=== PATIENT | male | born 1960 | race Caucasian/White ===

== ENCOUNTER 2018-05-28 07:41 | Inpatient (IN) | payer BC ==
[2018-05-28] MEDS ORDERED: ASPIRIN 81 MG CHEWABLE TABLETS PO ONE (07:54)
[2018-05-28] MEDS ORDERED: NITROGLYCERIN SUBLINGUAL 1/150 0.4 MG TAB SL ONE (07:54)
[2018-05-28] MEDS ORDERED: ASPIRIN 81 MG CHEWABLE TABLETS ONE (07:59)
[2018-05-28] MEDS ORDERED: NITROGLYCERIN SUBLINGUAL 1/150 0.4 MG TAB ONE (08:00)
[2018-05-28] MEDS ORDERED: morphine SULFATE 4 MG/ML VIAL ONE ×2 (08:07→09:18)
[2018-05-28] MEDS ORDERED: morphine CARPU-JECT 2 MG/1 ML DISP.SYRIN IVPUSH ONE ×2 (08:11→08:58)
[2018-05-28] MEDS ORDERED: SODIUM CHLORIDE 1,000 ML IV STA ×2 (08:11→09:33)
[2018-05-28 08:21] LABS: BASO % 1.2 % (0-2.0); EOS % 2.7 % (0-4.5); HEMATOCRIT 51.3 % (35.4-49); LYMPH % 14.8 % (8-40); MEAN CELL VOLUME 93.7 fl (80-96); MONO % 8.1 % (3.8-10.2); NEUT % 73.2 % (42.8-82.8); PLATELET COUNT 284 K/MM3 (134-434); RBC 5.48 M/mm3 (4.00-5.60); RDW 13.7 % (11.9-15.9); WHITE BLOOD COUNT 10.7 K/mm3 (4.0-10.0)
--- NOTE | 2018-05-28 08:27 | PDOC ---
History of Present Illness <Lexi Newsome - Last Filed: 05/28/18 10:35> - General History Source: Patient - History of Present Illness Presenting Symptoms: Chest Pain Timing/Duration: reports: constant, getting worse Severity/Quality: reports: severe, tightness Location: reports: substernal Chest Pain Radiation: reports: no radiation Activities at Onset: reports: none Prior Chest Pain/Cardiac Workup: reports: No prior chest pain Modifying Factors: improves with: breathing Nitro Today/Relief: Yes: 0.4 mg x 1, provided by ED Aspirin Received prior to arrival (Core Measure): Yes: 81 mg x 2, provided by ED Associated Symptoms: Yes: Chest Pain/pressure <Allie Culp - Last Filed: 05/28/18 12:35> - General Chief Complaint: Chest Pain Stated Complaint: CHEST PAIN Time Seen by Provider: 05/28/18 07:43 - History of Present Illness Initial Comments: 05/28/18 08:18 58-year-old male with history of diabetes and smoking history presents to ED with left-sided chest tightness since awakening this morning which progressively worsened prompting him to call 911. Patient also states secondary to the pain has difficulty taking a deep breath. Patient denies palpitations, nausea, weakness, abdominal pain, back pain, midsternal pain, recent travel, recent illness, calf pain or recent change in medications. Patient states is followed by Dr. Sherif Radford and has seen a vest finisher at his office. Patient' s glucose performed by EMS was 190. No nitroglycerin or aspirin was administered (Allie Culp) Past History <Lexi Newsome - Last Filed: 05/28/18 10:35> - Travel Traveled outside of the country in the last 30 days: No - Suicide/Smoking/Psychosocial Hx Smoking Status: Yes Smoking History: Current every day smoker Have you smoked in the past 12 months: Yes Number of Cigarettes Smoked Daily: 4 Information on smoking cessation initiated: No 'Breaking Loose' booklet given: 07/17/13 Hx Alcohol Use: No Drug/Substance Use Hx: No Substance Use Type: None Hx Substance Use Treatment: No Patient Lives Alone: No <Allie Culp - Last Filed: 05/28/18 12:35> - Past Medical History Allergies/Adverse Reactions: Allergies Allergy/AdvReac Type Severity Reaction Status Date / Time No Known Allergies Allergy Verified 07/17/13 10:42 Home Medications: Ambulatory Orders Aspirin [ASA -] 81 mg PO DAILY 05/28/18 Canagliflozin [Invokana] 100 mg PO DAILY 05/28/18 Sitagliptin Phos/Metformin HCl [Janumet 50-1,000 mg Tablet] 1 each PO DAILY 09/02 Review of Systems - Review of Systems Able to Perform ROS?: No Constitutional: No: Symptoms Reported HEENTM: No: Symptoms Reported Respiratory: Yes: Shortness of Breath Cardiac (ROS): Yes: Chest Pain, Chest Tightness ABD/GI: No: Symptoms Reported : No: Symptoms Reported Musculoskeletal: No: Symptoms Reported Neurological: No: Symptoms reported Hematologic/Lymphatic: No: Symptoms Reported <RobbiAllie - Last Filed: 05/28/18 12:35> *Physical Exam - Physical Exam General Appearance: Yes: Nourished, Appropriately Dressed. No: Apparent Distress HEENT: positive: EOMI, JUAN. negative: Pale Conjunctivae Neck: positive: Supple Respiratory/Chest: positive: Lungs Clear, Normal Breath Sounds. negative: Chest Tender, Respiratory Distress, Accessory Muscle Use Cardiovascular: positive: Regular Rhythm, Regular Rate. negative: Murmur Gastrointestinal/Abdominal: positive: Soft. negative: Distended, Rebound, Tenderness Musculoskeletal: negative: Normal Inspection Extremity: negative: Normal Capillary Refill, Pedal Edema Integumentary: positive: Normal Color, Warm, Moist Neurologic: positive: Motor Strength 5/5 (ambulatory) <RobbiAllie - Last Filed: 05/28/18 12:35> - Vital Signs Last Vital Signs Temp Pulse Resp BP Pulse Ox 97.8 F 95 H 16 92/57 97 05/28/18 11:52 05/28/18 11:52 05/28/18 11:52 05/28/18 11:52 05/28/18 11:52 Heart Score/ECG Review - History History: Slightly suspicious - Electrocardiogram EKG: Normal - Age Age: 45-65 - Risk Factors Risk Factors Heart Score: Yes Hx Diabetes, Yes Smoking History Based on the list above the patient has:: 1-2 risk factors - Troponin Troponin: </= normal limit - Score Heart Score - Total: 2 #2 ECG reviewed & interpreted by me at: 09:00 General ECG Interpretation: Sinus Rhythm, No acute ischemic changes Compared to previous ECG there are: No significant change - ECG Intrepretation Rhythm: Regular Rhythm (nsr at 93, no ST elevation or depression noted. intervals are regular) <Allie Culp - Last Filed: 05/28/18 12:35> ED Treatment Course - LABORATORY CBC & Chemistry Diagram: 05/28/18 08:04 05/28/18 08:04 - Additional Consults Time Called: 10:35 (Paged service) Consult/PCP: Dr. Cruz <Lexi Newsome - Last Filed: 05/28/18 10:35> - LABORATORY CBC & Chemistry Diagram: 05/28/18 08:04 05/28/18 08:04 <Allie Culp - Last Filed: 05/28/18 12:35> - ADDITIONAL ORDERS Additional order review: Laboratory Results 05/28/18 05/28/18 05/28/18 08:04 08:04 08:04 PT with INR 10.60 INR 0.94 D-Dimer 485 Sodium 138 Potassium 4.6 D Chloride 104 Carbon Dioxide 27 Anion Gap 7 L BUN 21 H Creatinine 0.8 Creat Clearance w eGFR > 60 Random Glucose 168 H Calcium 8.9 Magnesium 2.3 Total Bilirubin 0.3 AST 17 ALT 26 D Alkaline Phosphatase 112 Creatine Kinase 117 Troponin I < 0.02 Total Protein 7.3 Albumin 3.8 Lipase 104 05/28/18 08:04 RBC 5.48 MCV 93.7 MCHC 33.0 RDW 13.7 MPV 7.0 L Neutrophils % 73.2 Lymphocytes % 14.8 Monocytes % 8.1 Eosinophils % 2.7 Basophils % 1.2 - RADIOLOGY Radiology Studies Ordered: Category Date Time Status ABDOMEN/PELVIS CTA W/WO CONTR [CT] Stat CT Scan 05/28/18 09:52 Completed CHEST CTA [CT] Stat CT Scan 05/28/18 09:22 Completed CHEST X-RAY PORTABLE* [RAD] Stat Radiology 05/28/18 07:54 Completed - Medications Given in the ED: ED Medications Discontinued Medications Generic Name Dose Route Start Last Admin Trade Name Freq PRN Reason Stop Dose Admin Aspirin 162 mg 05/28/18 07:54 05/28/18 08:05 Asa - PO 05/28/18 07:55 162 mg ONCE ONE Administration Sodium Chloride 1,000 mls @ 1,000 mls/hr 05/28/18 08:11 05/28/18 08:24 Normal Saline - IV 05/28/18 09:10 1,000 mls/hr ASDIR STA Administration Sodium Chloride 1,000 mls @ 1,000 mls/hr 05/28/18 09:33 05/28/18 09:38 Normal Saline - IV 05/28/18 10:32 1,000 mls/hr ASDIR STA Administration Morphine Sulfate 4 mg 05/28/18 08:11 05/28/18 08:24 Morphine Injection - IVPUSH 05/28/18 08:12 4 mg ONCE ONE Administration Morphine Sulfate 2 mg 05/28/18 08:58 05/28/18 09:12 Morphine Injection - IVPUSH 05/28/18 08:59 2 mg ONCE ONE Administration Nitroglycerin 0.4 mg 05/28/18 07:54 05/28/18 08:05 Nitrostat - SL 05/28/18 07:55 0.4 mg ONCE ONE Administration Oxycodone/Acetaminophen 1 combo 05/28/18 10:40 05/28/18 10:52 Percocet 5/325 - PO 05/28/18 10:41 1 combo ONCE ONE Administration Medical Decision Making <Lexi Newsome - Last Filed: 05/28/18 10:35> <Allie Culp - Last Filed: 05/28/18 12:35> - Medical Decision Making 05/28/18 08:23 Patient arrives with complaints of left-sided chest tightness diaphoretic complaining of difficulty taking a deep breath secondary to the pain. Patient states pain began upon awakening and progressively worsened. Patient immediately placed on stave saw operator, EKG was performed which showed no acute findings. Patient had IV access established given nitroglycerin and 2 baby aspirin.Patient continued to complain of left-sided chest pain and was given 4mg of morphine which at that time his blood pressure and went to 77/48. Patient was given IV fluids as a odilia lsaline bolus. within minutes he felt comfortable with no complaints of chest pain. Patient remained on 3L of nasal cannula. Will rule out PE, ACS, pulmonary etiology, and will consider dissection, pericarditis, and admission secondary to his factors. Heart score 2. 05/28/18 10:[address] Cruz will admit to telemetry off. She is recommending Dr. Mckinley for cardiology consult. Patient is pending CT of the chest and abdomen along with echo. Patient is currently asymptomatic. Patient ordered for 1 Percocet since second dose of morphine did not alleviate his left-sided chest tightness entirely. 05/28/18 10:40 Laboratory Tests 05/28/18 05/28/18 05/28/18 08:04 08:04 08:04 WBC 10.7 H Hgb 17.0 H Hct 51.3 H MPV 7.0 L Neutrophils % 73.2 PT with INR 10.60 INR 0.94 D-Dimer 485 Sodium Potassium Chloride Carbon Dioxide Anion Gap BUN Creatinine Creat Clearance w eGFR Random Glucose Calcium Magnesium Total Bilirubin AST ALT Alkaline Phosphatase Creatine Kinase Troponin I Lipase 05/28/18 08:04 WBC Hgb Hct MPV Neutrophils % PT with INR INR D-Dimer Sodium 138 Potassium 4.6 D Chloride 104 Carbon Dioxide 27 Anion Gap 7 L BUN 21 H Creatinine 0.8 Creat Clearance w eGFR > 60 Random Glucose 168 H Calcium 8.9 Magnesium 2.3 Total Bilirubin 0.3 AST 17 ALT 26 D Alkaline Phosphatase 112 Creatine Kinase 117 Troponin I < 0.02 Lipase 104 Case discussed with Franceradha, vest finisher and recommending Lovenox until the echo is reviewed. He will consult shortly 05/28/18 12:35 (Allie Culp) *DC/Admit/Observation/Transfer <Lexi Newsome - Last Filed: 05/28/18 10:35> - Discharge Dispostion Decision to Admit order: Yes <Allie Culp - Last Filed: 05/28/18 12:35> Diagnosis at time of Disposition: Chest tightness
[2018-05-28 08:42] LABS: INR 0.94 (0.83-1.09); PROTHROMBIN TIME (PATIENT) 10.6 SEC (9.7-13.0)
[2018-05-28 09:05] LABS: ALBUMIN 3.8 g/dl (3.4-5.0); ANION GAP 7 MMOL/L (8-16); BLOOD UREA NITROGEN 21 mg/dL (7-18); CALCIUM 8.9 mg/dL (8.5-10.1); CHLORIDE 104 mmol/L (98-107); CO2 27 mmol/L (21-32); CREATININE 0.8 mg/dL (0.7-1.3); GLUCOSE,RANDOM 168 mg/dL (74-106); MAGNESIUM 2.3 mg/dL (1.8-2.4); POTASSIUM 4.6 mmol/L (3.5-5.1); SGOT/AST 17 U/L (15-37); SGPT/ALT 26 U/L (12-78); SODIUM 138 mmol/L (136-145)
[2018-05-28 09:08] LABS: ALK PHOS 112 U/L (45-117); BILIRUBIN,TOTAL 0.3 mg/dL (0.2-1.0); TOT PROT 7.3 g/dl (6.4-8.2)
[2018-05-28 09:41] LABS: LIPASE 104 U/L (73-393)
--- NOTE | 2018-05-28 10:18 | PDOC ---
*Physical Exam - Vital Signs Last Vital Signs Temp Pulse Resp BP Pulse Ox 98.3 F 81 16 72/52 98 05/28/18 09:12 05/28/18 09:31 05/28/18 09:31 05/28/18 09:31 05/28/18 09:31 - Physical Exam Comments: 05/28/18 10:18 The patient was examined by MAGALIS Horn under my direct supervision. I personally evaluated the patient. I concur with the above findings and the plan of care. ED Treatment Course - LABORATORY CBC & Chemistry Diagram: 05/29/18 05:30 05/29/18 05:30 - ADDITIONAL ORDERS Additional order review: Laboratory Results 05/28/18 05/28/18 05/28/18 08:04 08:04 08:04 PT with INR 10.60 INR 0.94 D-Dimer 485 Sodium 138 Potassium 4.6 D Chloride 104 Carbon Dioxide 27 Anion Gap 7 L BUN 21 H Creatinine 0.8 Creat Clearance w eGFR > 60 Random Glucose 168 H Calcium 8.9 Magnesium 2.3 Total Bilirubin 0.3 AST 17 ALT 26 D Alkaline Phosphatase 112 Creatine Kinase 117 Troponin I < 0.02 Total Protein 7.3 Albumin 3.8 Lipase 104 05/28/18 08:04 RBC 5.48 MCV 93.7 MCHC 33.0 RDW 13.7 MPV 7.0 L Neutrophils % 73.2 Lymphocytes % 14.8 Monocytes % 8.1 Eosinophils % 2.7 Basophils % 1.2 - Medications Given in the ED: ED Medications Discontinued Medications Generic Name Dose Route Start Last Admin Trade Name Emmanuelq PRN Reason Stop Dose Admin Aspirin 162 mg 05/28/18 07:54 05/28/18 08:05 Asa - PO 05/28/18 07:55 162 mg ONCE ONE Administration Sodium Chloride 1,000 mls @ 1,000 mls/hr 05/28/18 08:11 05/28/18 08:24 Normal Saline - IV 05/28/18 09:10 1,000 mls/hr ASDIR STA Administration Morphine Sulfate 4 mg 05/28/18 08:11 05/28/18 08:24 Morphine Injection - IVPUSH 05/28/18 08:12 4 mg ONCE ONE Administration Morphine Sulfate 2 mg 05/28/18 08:58 05/28/18 09:12 Morphine Injection - IVPUSH 05/28/18 08:59 2 mg ONCE ONE Administration Nitroglycerin 0.4 mg 05/28/18 07:54 05/28/18 08:05 Nitrostat - SL 05/28/18 07:55 0.4 mg ONCE ONE Administration *DC/Admit/Observation/Transfer Diagnosis at time of Disposition: Chest tightness - Discharge Dispostion Disposition: HOME Condition at time of disposition: Stable - Prescriptions - Referrals - Patient Instructions - Post Discharge Activity
--- NOTE | 2018-05-28 11:48 | EKG ---
Test Reason : Blood Pressure : / mmHG Vent. Rate : 074 BPM Atrial Rate : 074 BPM P-R Int : 146 ms QRS Dur : 082 ms QT Int : 388 ms P-R-T Axes : 005 015 005 degrees QTc Int : 430 ms NORMAL SINUS RHYTHM CANNOT RULE OUT ANTERIOR INFARCT (CITED ON OR BEFORE 28-MAY-2018) ABNORMAL ECG WHEN COMPARED WITH ECG OF 28-MAY-2018 07:46, T WAVE INVERSION NOW EVIDENT IN INFERIOR LEADS Confirmed by JUANITO REID, KIRK ([id number]) on 05/28/2018 11:48:29 AM Referred By: Confirmed By:KIRK SOLOMON MD
--- NOTE | 2018-05-28 11:49 | EKG ---
Test Reason : Blood Pressure : / mmHG Vent. Rate : 093 BPM Atrial Rate : 093 BPM P-R Int : 138 ms QRS Dur : 078 ms QT Int : 348 ms P-R-T Axes : 040 044 054 degrees QTc Int : 432 ms POOR DATA QUALITY, INTERPRETATION MAY BE ADVERSELY AFFECTED NORMAL SINUS RHYTHM CANNOT RULE OUT ANTERIOR INFARCT , AGE UNDETERMINED ABNORMAL ECG WHEN COMPARED WITH ECG OF 17-JUL-2013 16:10, NON-SPECIFIC CHANGE IN ST SEGMENT IN INFERIOR LEADS NONSPECIFIC T WAVE ABNORMALITY NO LONGER EVIDENT IN INFERIOR LEADS NONSPECIFIC T WAVE ABNORMALITY NO LONGER EVIDENT IN LATERAL LEADS Confirmed by JUANITO REID, KIRK ([id number]) on 05/28/2018 11:48:48 AM Referred By: Confirmed By:KIRK SOLOMON MD
[2018-05-28] MEDS ORDERED: ENOXAPARIN NA (PORCINE) 100 MG/1 ML DISP.SYRIN SQ ONE ×2 (12:34→12:41)
--- NOTE | 2018-05-28 13:49 | EKG ---
Test Reason : Blood Pressure : / mmHG Vent. Rate : 089 BPM Atrial Rate : 089 BPM P-R Int : 154 ms QRS Dur : 082 ms QT Int : 358 ms P-R-T Axes : 009 001 014 degrees QTc Int : 435 ms NORMAL SINUS RHYTHM NORMAL ECG WHEN COMPARED WITH ECG OF 28-MAY-2018 08:55, NO SIGNIFICANT CHANGE WAS FOUND Confirmed by KIRK SOLOMON MD ([id number]) on 05/28/2018 1:49:08 PM Referred By: Confirmed By:KIRK SOLOMON MD
[2018-05-28 14:20] LABS: URINE APPEARANCE CLEAR; URINE BILIRUBIN NEGATIVE (<2.0 mg/dL); URINE COLOR YELLOW; URINE GLUCOSE (UA) 3+ (NEGATIVE); URINE KETONE NEGATIVE (NEGATIVE); URINE LEUK ESTERASE NEGATIVE (NEGATIVE); URINE NITRITE NEGATIVE (NEGATIVE); URINE PROTEIN NEGATIVE (NEGATIVE); URINE UROBILINOGEN NEGATIVE mg/dL (0.2-1.0)
--- NOTE | 2018-05-28 14:47 | ECHO ---
Name: FRANKY DONNELLY Exam:Adult Echocardiogram Study Date: 05/28/2018 10:38 AM Age: 58 yrs Reason For Study: Chest pain Height: 69 in Weight: 230 lb BSA: 2.2 m2 BP: 91/58 mmHg MMode/2D Measurements & Calculations IVSd: 0.90 cm Ao root diam: 3.1 cm LVIDd: 3.8 cm LA dimension: 2.7 cm LVIDs: 2.5 cm LVPWd: 1.0 cm EDV(Teich): 61.7 ml ESV(Teich): 21.5 ml Doppler Measurements & Calculations MV E max tavo: 74.0 cm/sec AI P1/2t: 526.5 msec MV A max tavo: 84.4 cm/sec MV E/A: 0.88 MV dec time: 0.14 sec AI max tavo: 341.0 cm/sec TR max tavo: 228.0 cm/sec AI max P.5 mmHg TR max P.8 mmHg AI dec slope: 189.7 cm/sec2 Med Peak E' Tavo: 6.1 cm/sec Med E/e': 12.1 Lat Peak E' Tavo: 9.4 cm/sec Lat E/e': 7.9 Procedure A two-dimensional transthoracic echocardiogram with color flow and Doppler was performed. Left Ventricle The left ventricular size, thickness and function are normal. The left ventricular ejection fraction is normal. E/A reversal consistent with but not diagnostic of poor LV compliance. The left ventricular w all motion is normal. Right Ventricle The right ventricle is normal in size and function. Atria Normal left and right atrial size and function. Mitral Valve The mitral valve is normal in structure and function. There is no mitral valve stenosis. There is tra ce to mild mitral regurgitation. Tricuspid Valve There is trivial tricuspid valve thickening. There is no tricuspid stenosis. There is trace tricuspid regurgitation. Right ventricular systolic pressure is normal. Aortic Valve The aortic valve is normal in structure and function. No hemodynamically significant valvular aortic stenosis. Trace to mild aortic regurgitation. Pulmonic Valve The pulmonic valve is not well visualized. Great Vessels The aortic root is normal size. Pericardium/Pleura There is no pericardial effusion. Interpretation Summary The left ventricular size, thickness and function are normal The left ventricular ejection fraction is normal. The left ventricular wall motion is normal. There is trace to mild mitral regurgitation. There is trace tricuspid regurgitation. Right ventricular systolic pressure is normal. E/A reversal consistent with but not diagnostic of poor LV compliance Trace to mild aortic regurgitation. MD Seymour Silva 05/28/2018 02:47 PM
[2018-05-28] MEDS ORDERED: AZITHROMYCIN IVPB 500 MG in DEXTROSE 5%-WATER - 250 ML IVPB ONE (17:13)
[2018-05-28] MEDS ORDERED: CEFTRIAXONE 1,000 MG in DEXTROSE 5%-WATER - 50 ML IVPB ONE (17:13)
[2018-05-28] MEDS ORDERED: CEFTRIAXONE 1 GM/50 ML BAG ONE (18:11)
[2018-05-28] MEDS ORDERED: AZITHROMYCIN IVPB 250 ML IVPB ONE (18:11)
--- NOTE | 2018-05-28 18:50 | CON.CARD ---
Consult Consult Specialty:: Cardiology Referred by:: Dr. Cruz Reason for Consultation:: Chest pain - History of Present Illness Chief Complaint: Chest pain History of Present Illness: 58M with DM awoke today with diffuse central chest pressure/tightness worse laying down and with deep breathing. Denies fever; no chills but has felt "cold. " Chronic dry cough which he attributes to smoking. The pain is central, substernal, worse supine and improved sitting up. There is a pleuritic character as well worse with deep inspiration. He denies nausea or vomiting. Denies diaphoresis on my history- except for the first few minutes of his ER visit. 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 He was given SLNTG and IV MSO4 with hypotensive response requiring IVF. He was normotensive prior to nitro and morphine. ECG showed NSR with diffuse early repolarization changes and did not show sig ST depressions or clinically diagnostic regional ST elevations. He was also given SQ Lovenox for possible ACS after the CT scan was read negative for dissection and pulmonary embolism. I reviewed his echo which showed normal LV function and normal right sided pressure. No pericardial effusion. I also reviewed his CTA with Dr. Hanley of radiology and confirmed no pulmonary embolism or aortic pathology- there are clear bilateral consolidations suggestive of PNA. The radiographic appearance was not suggestive of CHF. He denies sick contacts, recent prolonged car or air travel. Pior to this morning, he denied exertional CP, SOB or any limitation in exercise capacity. No palpitations, syncope, PND or orthopnea. 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: Alzheimer's, CVA, Dementia, Migraine, Multiple Sclerosis, Peripheral Neuropathy, Parkinson's, Seizure, Syncope, TIA, Vertigo, Other Cardio/Vascular: No: AFIB, Aneurysm, Aortic Insufficiency, Aortic Stenosis, CAD , CHF, Deep Vein Thrombosis, HTN, Hyperlipdemia, [place], Mitral Insufficiency, Mitral Stenosis, Murmur, Pulmonary Hypertension, Other Pulmonary: No: Asthma, Bronchitis, Cancer, COPD, O2 Dependent, Pneumonia, Previously Intubated, Pulmonary Embolus, Pulmonary Fibrosis, Sleep Apnea, Other Gastrointestinal: No: Ascites, Cancer, Constipation, Crohn's Disease, Diverticulitis, Diverticulosis, Esophageal Varices, Gastritis, GERD, GI Bleed, Hemorrhoids, Hiatal Hernia, Inflamatory Bowel Disease, Irritable Bowel Disease, Pancreatitis, Peptic Ulcer Disease, Ulcerative Colitis, Other Hepatobiliary: No: Cirrhosis, Cholelithiasis, Cholecystitis, Choledocholithiasis , Hepatitis A, Hepatitis B, Hepatitis C, Other Renal/: No: Renal Failure, Renal Inusuff, BPH, Cancer, Hematuria, Hemodialysis , Neurogenic Bladder, Renal Calculi, UTI, Other Heme/Onc: No: Anemia, B12 Deficiency, Bleeding Disorder, Cancer, Current Chemotherapy, Current Radiation Therapy, Hemochromatosis, Hypercoaguable State, Myeloproliferative Synd, Sickle Cell Disease, Sickle Cell Trait, Thrombocytopenia, Other Infectious Disease: No: AIDS, C-Diff, Herpes Zoster, HIV, MRSA, STD's, Tuberculosis, VREF, Other Psych: No: Addictions, Anxiety, Bipolar, Depression, Panic, Psychosis, Schizophrenia, Other Musculoskeletal: No: Bursitis, Chronic low back pain, Hemiparesis, Hemiplegia, Osteoarthritis, Paraplegia, Other ENT: No: Allergic Rhinitis, Sinusitis, Other Endocrine: Yes: Diabetes Mellitus Additional Medical History: No significant PMHx - Past Surgical History Past Surgical History: Yes: None - Alcohol/Substance Use Hx Alcohol Use: No History of Substance Use: reports: None - Smoking History Smoking history: Current every day smoker Have you smoked in the past 12 months: Yes Aproximately how many cigarettes per day: 12 - Social History Usual Living Arrangement: With Spouse ADL: Independent History of Recent Travel: Yes Home Medications - Allergies Allergies/Adverse Reactions: Allergies Allergy/AdvReac Type Severity Reaction Status Date / Time No Known Allergies Allergy Verified 07/17/13 10:42 - Home Medications Home Medications: Ambulatory Orders Aspirin [ASA -] 81 mg PO DAILY 05/28/18 Canagliflozin [Invokana] 100 mg PO DAILY 05/28/18 Sitagliptin Phos/Metformin HCl [Janumet 50-1,000 mg Tablet] 1 each PO DAILY 09/02 Family Disease History - Family Disease History Family History: Unremarkable (Denies early CAD or SCD in 1st degree relatives) Review of Systems Findings/Remarks: 58M with DM awoke today with diffuse central chest pressure/tightness worse laying down and with deep breathing. Denies fever; no chills but has felt "cold. " Chronic dry cough which he attributes to smoking. The pain is central, substernal, worse supine and improved sitting up. There is a pleuritic character as well worse with deep inspiration. He denies nausea or vomiting. Denies diaphoresis on my history- except for the first few minutes of his ER visit. 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 He was given SLNTG and IV MSO4 with hypotensive response requiring IVF. He was normotensive prior to nitro and morphine. ECG showed NSR with diffuse early repolarization changes and did not show sig ST depressions or clinically diagnostic regional ST elevations. A CTA was obtained to rule out PE and aortic dissection and was negative for both, but did show bilateral atelectasis vs infiltrates. I reviewed his echo which showed normal LV function and normal right sided pressure. No pericardial effusion. I also reviewed his CTA with Dr. Hanley of radiology and confirmed no pulmonary embolism or aortic pathology- there were clear bilateral consolidations suggestive of PNA. The radiographic appearance was not suggestive of CHF. He denies sick contacts, recent prolonged car or air travel. Pior to this morning, he denied exertional CP, SOB or any limitation in exercise capacity. No palpitations, syncope, PND or orthopnea. - Review of Systems Constitutional: reports: Malaise Eyes: denies: No Symptoms, Blind Spots, Blurred Vision, Double Vision, Eye Pain , Floaters, Photophobia, Recent Change in Vision, Other HENT: denies: No Symptoms, Difficult Swallowing, Ear Discharge, Ear Pain, Epistaxis, Gingival Bleeding, Hearing Loss, Mouth Swelling, Nasal Congestion, Ocular Prosthesis, Throat Pain, Toothache, Ringing in Ears, Other Neck: denies: No Symptoms, Decreased ROM, Lumps, Pain on Movement, Stiffness, Swollen Glands, Tenderness, Other Cardiovascular: reports: Chest Pain (Positional: worse laying flat and with deep inspiration) Respiratory: reports: Cough (chronic dry cough) Gastrointestinal: denies: No Symptoms, Abdominal Pain, Bloating, Constipation, Diarrhea, Dysphagia, Indigestion, Melena, Nausea, Rectal Bleeding, Vomiting, Vomiting Blood, Other Genitourinary: denies: No Symptoms, Burning, Discharge, Dysuria, Flank Pain, Frequency, Hematuria, Incontinence, Lesions, Menses, Pain, Testicular Mass, Testicular Pain, Testicular Swelling, Urgency, Vaginal Bleeding, Other Breasts: denies: No Symptoms Reported, See HPI, Breast Implants, Discharge from Nipple, Lumps, Pain, Skin Changes, Other Musculoskeletal: denies: No Symptoms, Back Pain, Crepitus, Decreased ROM, Extremity Pain, Joint Pain, Joint Swelling, Muscle Pain, Muscle Cramps, Muscle Weakness, Other Neurological: denies: No Symptoms, Change in LOC, Change in Speech, Confusion, Dizziness, Headache, Incoordination, Numbness, Parasthesia, Pre-Existing Deficit , Seizure, Syncope, Tremors, Unsteady Gait, Weakness, Other Endocrine: denies: No Symptoms, Excessive Sweating, Flushing, Increased Hunger, Increased Thirst, Intolerance to Cold, Intolerance to Heat, Unexplained Weight Gain, Unexplained Weight Loss, Other Psychiatric: denies: No Symptoms, Altered Sleep Pattern, Anxiety, Depression, Hallucinations, Panic, Paranoia, Suicidal, Other - Risk Factors Known Risk Factors: Yes: Diabetes Mellitus, Smoking Vital Signs: Vital Signs Temperature 98.4 F 05/28/18 18:23 Pulse Rate 98 H 05/28/18 18:23 Respiratory Rate 16 05/28/18 18:23 Blood Pressure 107/68 05/28/18 18:23 O2 Sat by Pulse Oximetry (%) 97 05/28/18 18:23 Constitutional: Yes: No Distress, Calm Eyes: Yes: Conjunctiva Clear, EOM Intact HENT: Yes: Normocephalic Neck: Yes: Trachea Midline Respiratory: Yes: Other (rales at bases bilaterally) Gastrointestinal: Yes: Soft, Abdomen, Obese Cardiovascular: Yes: Regular Rate and Rhythm JVD: No Carotid Bruit: No PMI: Non-Displaced Heart Sounds: Yes: S1, S2 (RRR. No murmurs. No S3, no S4. No rubs.) Edema: No (Negative Eliel's b/l) Peripheral Pulses WNL: Yes Peripheral Pulses: 2+ Left Carotid, 2+ Right Carotid, 2+ Left Doralis Pedis, 2+ Right Dorsalis Pedis Integumentary: Yes: WNL Neurological: Yes: Alert, Oriented ...Motor Strength: WNL Psychiatric: Yes: WNL - Other Data Labs, Other Data: CBC, BMP 05/28/18 08:04 05/28/18 08:04 INR, PTT INR 0.94 (0.83-1.09) 05/28/18 08:04 Troponin, BNP 05/28/18 05/28/18 08:04 11:29 Troponin I < 0.02 < 0.02 Troponin, BNP 05/28/18 05/28/18 08:04 11:29 Troponin I < 0.02 < 0.02 NSR with early repola changes diffusely. No sig regional ST elevations, No sig ST depressions. Echo: Report Reviewed, Image Reviewed (Normal biventricular fxn. Normal wall motion. No pericardial effusion. No sig valve dz. Mild TR. Right sided pressures normal Full report read by Dr. Silva charted separately in EMR) Ejection Fraction %: LVEF > or = 40 % Imaging - Results Chest X-ray: Image Reviewed Cat Scan: Image Reviewed (Reviewed w/ Dr. Hanley radiology-- no dissection. No pulmonary embolism. Bilateral consolidation suggestive of PNA) EKG: Image Reviewed Problem List - Problems (1) PNA (pneumonia) Code(s): J18.9 - PNEUMONIA, UNSPECIFIED ORGANISM Qualifiers: Pneumonia type: due to unspecified organism Laterality: bilateral (2) Diabetes mellitus Code(s): E11.9 - TYPE 2 DIABETES MELLITUS WITHOUT COMPLICATIONS Qualifiers: Diabetes mellitus type: type 2 Diabetes mellitus complication status: without complication (3) Pleuritic chest pain Code(s): R07.81 - PLEURODYNIA (4) Abnormal ECG Code(s): R94.31 - ABNORMAL ELECTROCARDIOGRAM [ECG] [EKG] (5) Leukocytosis Code(s): D72.829 - ELEVATED WHITE BLOOD CELL COUNT, UNSPECIFIED Qualifiers: Leukocytosis type: unspecified Qualified Code(s): D72.829 - Elevated white blood cell count, unspecified (6) Polycythemia due to fall in plasma volume Code(s): D75.1 - SECONDARY POLYCYTHEMIA (7) Azotemia Code(s): R79.89 - OTHER SPECIFIED ABNORMAL FINDINGS OF BLOOD CHEMISTRY Assessment/Plan IMP: 1. Type 2 DM 2. Pleuritic CP most likely secondary to bilateral PNA noted on chest CTA 3. Leukocytosis secondary to PNA 4. Pre-renal azotemia, likely resulting from underlying systemic infection 5. Polycythemia, likely reflecting a degree of hemoconcentration secondary to above 6. Abnormal ECG: with diffuse early repolarization changes. Stable on serial exams. REC: 1. Blood cultures, abx for suspected PNA as per PMD. Pulmonary evaluation. Supplimental O2 if needed, currently with O2 sat of 98% on room air. 2. Complete MARCO (low clinical suspicion) with 3rd set of cardiac enzymes. 3. Telemetry overnight as MARCO is completed. 4. Hydrate. 5. Repeat CBC, BMP in AM after hydration. 6. A BNP will be obtained as ER staff raised question of whether pulmonary infiltrates may represent congestion- unlikely based on review CT 7. Cont home ASA 81mg daily 8. Repeat ECG in AM. 9. DVT prophylaxis. 10. Will recommend outpatient stress test when pulmonary condition resolved unless clinical change.
[2018-05-28 20:40] VITALS: BMI 35.8
[2018-05-28] MEDS ORDERED: PNEUMOC 13-VAL CONJ-DIP CRM/PF 0.5 ML DISP.SYRIN IM ONE (22:00)
[2018-05-28] MEDS ORDERED: ALBUTEROL SO4 2.5/IPRATROPIUM 0.5 INH SOL 3 ML VIAL.NEB. NEB PRN (23:51)
[2018-05-28] MEDS ORDERED: morphine SULFATE 4 MG/ML VIAL IVPUSH PRN (23:56)
[2018-05-29 05:56] LABS: BASO % 0.7 % (0-2.0); EOS % 1.8 % (0-4.5); HEMATOCRIT 44.7 % (35.4-49); HEMOGLOBIN 14.9 GM/dL (11.7-16.9); LYMPH % 14.5 % (8-40); MCH 31.1 pg (25.7-33.7); MCHC 33.3 g/dl (32.0-35.9); MEAN CELL VOLUME 93.5 fl (80-96); MEAN PLT VOLUME 8.2 fl (7.5-11.1); MONO % 13.6 % (3.8-10.2); NEUT % 69.4 % (42.8-82.8); PLATELET COUNT 203 K/MM3 (134-434); RBC 4.78 M/mm3 (4.00-5.60); RDW 13.8 % (11.9-15.9); WHITE BLOOD COUNT 9.4 K/mm3 (4.0-10.0)
[2018-05-29] MEDS: metFORMIN HCL 500 MG TABLET (FP) PO SCH (06:19)
[2018-05-29] MEDS: INSULIN SLIDING SCALE (NOVOLOG) 1 VIAL SQ SCH ×4 (06:20→21:10)
[2018-05-29] MEDS: sitaGLIPtin PHOSPHATE 50 MG TABLET PO SCH (06:20)
[2018-05-29 06:24] LABS: ANION GAP 7 MMOL/L (8-16); BLOOD UREA NITROGEN 17 mg/dL (7-18); CALCIUM 8.6 mg/dL (8.5-10.1); CHLORIDE 103 mmol/L (98-107); CO2 25 mmol/L (21-32); CREATININE 0.7 mg/dL (0.7-1.3); GLUCOSE,RANDOM 108 mg/dL (74-106); POTASSIUM 4.3 mmol/L (3.5-5.1); SODIUM 135 mmol/L (136-145)
--- NOTE | 2018-05-29 09:04 | PN ---
Progress Note, Physician Chief Complaint: Seen and examined in ICU Feeling better, pleuritic pain improved. Now has developed a cough TELE: NSR History of Present Illness: Cardiac enzymes negative D-dimer negative - Current Medication List Current Medications: Active Medications Albuterol/Ipratropium (Duoneb -) 1 amp NEB Q6H PRN PRN Reason: SHORTNESS OF BREATH Aspirin (Asa -) 81 mg PO DAILY [facility] Heparin Sodium (Porcine) (Heparin -) 5,000 unit SQ BID [facility] Azithromycin 250 mg/ Dextrose 250 mls @ 250 mls/hr IVPB DAILY [facility] Ceftriaxone Sodium 1 gm/ (Dextrose) 50 mls @ 100 mls/hr IVPB DAILY [facility]; Protocol Insulin Aspart (Novolog Vial Sliding Scale -) 1 vial SQ ACHS [facility]; Protocol Last Admin: 05/29/18 06:20 Dose: Not Given Metformin HCl (Glucophage -) 1,000 mg PO DAILY@0700 [facility] Last Admin: 05/29/18 06:19 Dose: Not Given Morphine Sulfate (Morphine Sulfate) 4 mg IVPUSH Q6H PRN PRN Reason: PAIN LEVEL 6-10 Non-Formulary Medication (Canagliflozin [Invokana]) 100 mg PO DAILY [facility] Sitagliptin Phosphate (Januvia -) 50 mg PO DAILY@0700 [facility] Last Admin: 05/29/18 06:20 Dose: 50 mg - Objective Vital Signs: Vital Signs Temperature 98.3 F 05/29/18 06:00 Pulse Rate 95 H 05/29/18 06:00 Respiratory Rate 20 05/29/18 06:00 Blood Pressure 122/76 05/29/18 06:00 O2 Sat by Pulse Oximetry (%) 96 05/28/18 20:27 Constitutional: Yes: No Distress, Calm Eyes: Yes: Conjunctiva Clear Cardiovascular: Yes: Regular Rate and Rhythm Respiratory: Yes: Other (slight decreased breath sounds at bases.) Gastrointestinal: Yes: Soft, Abdomen, Obese Edema: No Peripheral Pulses WNL: Yes Neurological: Yes: Alert, Oriented Labs: CBC, BMP 05/29/18 05:30 05/29/18 05:30 INR, PTT INR 0.94 (0.83-1.09) 05/28/18 08:04 Microbiology Laboratory Tests 05/28/18 05/28/18 05/28/18 08:04 08:04 11:29 WBC Hgb Hct Plt Count D-Dimer 485 Sodium Potassium Creatine Kinase 117 81 Troponin I < 0.02 < 0.02 B-Natriuretic Peptide 05/28/18 05/28/18 05/29/18 17:06 17:06 05:30 WBC 9.4 Hgb 14.9 Hct 44.7 Plt Count 203 D D-Dimer Sodium Potassium Creatine Kinase 74 Troponin I < 0.02 B-Natriuretic Peptide 51.98 05/29/18 05:30 WBC Hgb Hct Plt Count D-Dimer Sodium 135 L Potassium 4.3 Creatine Kinase Troponin I B-Natriuretic Peptide - ....Imaging EKG: Image Reviewed Problem List - Problems (1) PNA (pneumonia) Code(s): J18.9 - PNEUMONIA, UNSPECIFIED ORGANISM Qualifiers: Pneumonia type: due to unspecified organism Laterality: bilateral (2) Diabetes mellitus Code(s): E11.9 - TYPE 2 DIABETES MELLITUS WITHOUT COMPLICATIONS Qualifiers: Diabetes mellitus type: type 2 Diabetes mellitus complication status: without complication (3) Pleuritic chest pain Code(s): R07.81 - PLEURODYNIA (4) Abnormal ECG Code(s): R94.31 - ABNORMAL ELECTROCARDIOGRAM [ECG] [EKG] (5) Leukocytosis Code(s): D72.829 - ELEVATED WHITE BLOOD CELL COUNT, UNSPECIFIED Qualifiers: Leukocytosis type: unspecified Qualified Code(s): D72.829 - Elevated white blood cell count, unspecified (6) Polycythemia due to fall in plasma volume Code(s): D75.1 - SECONDARY POLYCYTHEMIA (7) Azotemia Code(s): R79.89 - OTHER SPECIFIED ABNORMAL FINDINGS OF BLOOD CHEMISTRY Assessment/Plan IMP: 1. Type 2 DM 2. Pleuritic CP most likely secondary to bilateral PNA noted on chest CTA 3. Leukocytosis secondary to PNA- improved 4. Pre-renal azotemia, likely resulting from underlying systemic infection- improved 5. Polycythemia, likely reflecting a degree of hemoconcentration secondary to above also improved 6. Abnormal ECG: with diffuse early repolarization changes. Stable on serial exams. REC: 1. Blood cultures, abx for suspected PNA as per PMD. Pulmonary evaluation. Supplimental O2 if needed. 2. Cardiac enzymes negative x 3 sets. 3. Telemetry overnight is unremarkable. 4. Hydration has improved azotemia and hemoconcentration and now normotensive. 5. BNP normal-and there is no clinical evidence of CHF. 7. Cont home ASA 81mg daily 8. Repeat ECG in AM. 9. DVT prophylaxis. 10. Recommend outpatient stress test when pulmonary condition resolved unless clinical change.
[2018-05-29] MEDS ORDERED: cefTRIAXone SODIUM 1 GM VIAL ONE (09:30)
[2018-05-29] MEDS ORDERED: DEXTROSE 5%-WATER - 50 ML IVPB ONE (09:30)
[2018-05-29] MEDS: CEFTRIAXONE 1 GM in DEXTROSE 5%-WATER - 50 ML IVPB SCH (09:51)
[2018-05-29] MEDS: HEPARIN NA (PORCINE) 5,000 UNITS/ML 1ML VIAL SQ SCH ×2 (09:52→21:10)
[2018-05-29] MEDS: ASPIRIN 81 MG CHEWABLE TABLETS PO SCH (09:52)
[2018-05-29] MEDS ORDERED: PATIENT'S OWN MEDICATION (NON-FORMULARY) (Sitagliptin Phos/Metformin Hcl [Janumet 50-1,000 PO SCH (10:00)
[2018-05-29] MEDS ORDERED: PATIENT'S OWN MEDICATION (NON-FORMULARY) (Canagliflozin [Invokana] 100 MG) PO SCH (10:00)
[2018-05-29] MEDS: AZITHROMYCIN IVPB 250 MG in DEXTROSE 5%-WATER - 250 ML IVPB SCH (11:44)
--- NOTE | 2018-05-29 15:39 | EKG ---
Test Reason : Blood Pressure : / mmHG Vent. Rate : 092 BPM Atrial Rate : 092 BPM P-R Int : 144 ms QRS Dur : 084 ms QT Int : 350 ms P-R-T Axes : 046 001 029 degrees QTc Int : 432 ms NORMAL SINUS RHYTHM NORMAL ECG WHEN COMPARED WITH ECG OF 28-MAY-2018 11:17, NO SIGNIFICANT CHANGE WAS FOUND Confirmed by DAX MCGREGOR MD ([id number]) on 05/29/2018 3:39:23 PM Referred By: TRACY CR Confirmed By:DAX MCGREGOR MD
--- NOTE | 2018-05-29 15:39 | CON.PULM ---
Consult Consult Specialty:: PULM/CCM Referred by:: SAURAV Reason for Consultation:: CP or SOB - History of Present Illness Chief Complaint: CP or SOB History of Present Illness: 58 M, past medical history of DM. Woke up with diffuse central chest pressure/ tightness. Reports pain is worse laying flat and with deep breathing ( Pleuritic CP). Denies fever or chills. Some constitutional symptoms. Traveled to [place] for 4 days last week. No sick contacts. He does smoke daily, but reports that he has been trying to quit. He was screened (+) for OSAS in the past but did not accept treatment. CTA: No PE / bibasilar atelectasis/consolidation. 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, CVA, Dementia, Migraine, Multiple Sclerosis, Peripheral Neuropathy, Parkinson's, Seizure, Syncope, TIA, Vertigo, Other Cardio/Vascular: No: AFIB, Aneurysm, Aortic Insufficiency, Aortic Stenosis, CAD , CHF, Deep Vein Thrombosis, HTN, Hyperlipdemia, [place], Mitral Insufficiency, Mitral Stenosis, Murmur, Pulmonary Hypertension, Other Pulmonary: No: Asthma, Bronchitis, Cancer, COPD, O2 Dependent, Pneumonia, Previously Intubated, Pulmonary Embolus, Pulmonary Fibrosis, Sleep Apnea, Other Gastrointestinal: No: Ascites, Cancer, Constipation, Crohn's Disease, Diverticulitis, Diverticulosis, Esophageal Varices, Gastritis, GERD, GI Bleed, Hemorrhoids, Hiatal Hernia, Inflamatory Bowel Disease, Irritable Bowel Disease, Pancreatitis, Peptic Ulcer Disease, Ulcerative Colitis, Other Hepatobiliary: No: Cirrhosis, Cholelithiasis, Cholecystitis, Choledocholithiasis , Hepatitis A, Hepatitis B, Hepatitis C, Other Renal/: No: Renal Failure, Renal Inusuff, BPH, Cancer, Hematuria, Hemodialysis , Neurogenic Bladder, Renal Calculi, UTI, Other Infectious Disease: No: AIDS, C-Diff, Herpes Zoster, HIV, MRSA, STD's, Tuberculosis, VREF, Other Psych: No: Addictions, Anxiety, Bipolar, Depression, Panic, Psychosis, Schizophrenia, Other Musculoskeletal: No: Bursitis, Chronic low back pain, Hemiparesis, Hemiplegia, Osteoarthritis, Paraplegia, Other ENT: No: Allergic Rhinitis, Sinusitis, Other Endocrine: Yes: Diabetes Mellitus Additional Medical History: No significant PMHx - Past Surgical History Past Surgical History: Yes: None - Alcohol/Substance Use Hx Alcohol Use: No History of Substance Use: reports: None - Smoking History Smoking history: Current every day smoker Have you smoked in the past 12 months: Yes Aproximately how many cigarettes per day: 12 - Social History Usual Living Arrangement: With Spouse ADL: Independent History of Recent Travel: Yes Home Medications - Allergies Allergies/Adverse Reactions: Allergies Allergy/AdvReac Type Severity Reaction Status Date / Time No Known Allergies Allergy Verified 07/17/13 10:42 - Home Medications Home Medications: Ambulatory Orders Aspirin [ASA -] 81 mg PO DAILY 05/28/18 Canagliflozin [Invokana] 100 mg PO DAILY 05/28/18 Sitagliptin Phos/Metformin HCl [Janumet 50-1,000 mg Tablet] 1 each PO DAILY 09/02 Review of Systems - Review of Systems Constitutional: reports: Malaise. denies: Chills, Fever, Night Sweats, Unintentional Wgt. Loss, Weakness Eyes: reports: No Symptoms HENT: reports: No Symptoms Neck: reports: No Symptoms Cardiovascular: reports: Chest Pain, Shortness of Breath. denies: Edema, Palpitations Respiratory: reports: Cough, Snoring, SOB, SOB on Exertion. denies: Exercise Intolerance, Hemoptysis, Wheezing Gastrointestinal: reports: No Symptoms Genitourinary: reports: No Symptoms Breasts: reports: No Symptoms Reported Musculoskeletal: reports: No Symptoms Integumentary: reports: No Symptoms Neurological: reports: No Symptoms Endocrine: reports: No Symptoms Hematology/Lymphatic: reports: No Symptoms Psychiatric: reports: No Symptoms Physical Exam Vital Sings: Vital Signs Temperature 99.3 F 05/29/18 13:30 Pulse Rate 86 05/29/18 13:30 Respiratory Rate 18 05/29/18 13:30 Blood Pressure 126/87 05/29/18 13:30 O2 Sat by Pulse Oximetry (%) 94 L 05/29/18 09:00 Constitutional: Yes: No Distress, Calm, Obese Eyes: Yes: Conjunctiva Clear, EOM Intact HENT: Yes: Atraumatic, Normocephalic Neck: Yes: Supple, Trachea Midline Cardiovascular: Yes: Regular Rate and Rhythm Respiratory: Yes: Cough, Diminished, On Nasal O2. No: Accessory Muscle Use, Rales, Rhonchi, Stridor, Tachypnea, Wheezes ...Inspection: Yes: WNL ...Clubbing: No Gastrointestinal: Yes: Normal Bowel Sounds, Soft, Abdomen, Obese Breast(s): Yes: WNL Musculoskeletal: Yes: WNL Extremities: Yes: WNL Edema: No Peripheral Pulses WNL: Yes Integumentary: Yes: WNL Neurological: Yes: Alert, Oriented Psychiatric: Yes: WNL, Alert, Oriented Labs: CBC, BMP 05/29/18 05:30 05/29/18 05:30 Imaging - Results Chest X-ray: Report Reviewed, Image Reviewed Cat Scan: Report Reviewed, Image Reviewed Problem List - Problems (1) Chest tightness Code(s): R07.89 - OTHER CHEST PAIN (2) Diabetes mellitus Code(s): E11.9 - TYPE 2 DIABETES MELLITUS WITHOUT COMPLICATIONS Qualifiers: Diabetes mellitus type: type 2 Diabetes mellitus complication status: without complication (3) Leukocytosis Code(s): D72.829 - ELEVATED WHITE BLOOD CELL COUNT, UNSPECIFIED Qualifiers: Leukocytosis type: unspecified Qualified Code(s): D72.829 - Elevated white blood cell count, unspecified (4) PNA (pneumonia) Code(s): J18.9 - PNEUMONIA, UNSPECIFIED ORGANISM Qualifiers: Pneumonia type: due to unspecified organism Laterality: bilateral (5) Pleuritic chest pain Code(s): R07.81 - PLEURODYNIA Assessment/Plan Agree with ABX Smoking cessation discussed Outpatient PFTs BD TX PRN Check sputum Check urine VTE prophylaxis Cardiac workup ongoing Will need to reassess OSAS after D/C Thank you. Dr East
--- NOTE | 2018-05-29 16:55 | HP ---
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: No: Alzheimer's, CVA, Dementia, Migraine, Multiple Sclerosis, Peripheral Neuropathy, Parkinson's, Seizure, Syncope, TIA, Vertigo, Other Cardiovascular: No: AFIB, Aneurysm, Aortic Insufficiency, Aortic Stenosis, CAD, CHF, Deep Vein Thrombosis, HTN, Hyperlipdemia, ND, Mitral Insufficiency, Mitral Stenosis, Murmur, Pulmonary Hypertension, Other Pulmonary: No: Asthma, Bronchitis, Cancer, COPD, O2 Dependent, Pneumonia, Previously Intubated, Pulmonary Embolus, Pulmonary Fibrosis, Sleep Apnea, Other Gastrointestinal: No: Ascites, Cancer, Constipation, Crohn's Disease, Diverticulitis, Diverticulosis, Esophageal Varices, Gastritis, GERD, GI Bleed, Hemorrhoids, Hiatal Hernia, Inflamatory Bowel Disease, Irritable Bowel Disease, Pancreatitis, Peptic Ulcer Disease, Ulcerative Colitis, Other Hepatobiliary: No: Cirrhosis, Cholelithiasis, Cholecystitis, Choledocholithiasis , Hepatitis A, Hepatitis B, Hepatitis C, Other Renal/: No: Renal Failure, Renal Inusuff, BPH, Cancer, Hematuria, Hemodialysis , Neurogenic Bladder, Renal Calculi, UTI, Other Heme/Onc: No: Anemia, B12 Deficiency, Bleeding Disorder, Cancer, Current Chemotherapy, Current Radiation Therapy, Hemochromatosis, Hypercoaguable State, Myeloproliferative Synd, Sickle Cell Disease, Sickle Cell Trait, Thrombocytopenia, Other Infectious Disease: No: AIDS, C-Diff, Herpes Zoster, HIV, MRSA, STD's, Tuberculosis, VREF, Other Psych: No: Addictions, Anxiety, Bipolar, Depression, Panic, Psychosis, Schizophrenia, Other Musculoskeletal: No: Bursitis, Chronic low back pain, Hemiparesis, Hemiplegia, Osteoarthritis, Paraplegia, Other ENT: No: Allergic Rhinitis, Sinusitis, Other Endocrine: Yes: Diabetes Mellitus - Past Surgical History Past Surgical History: Yes: None - Smoking History Smoking history: Current every day smoker Have you smoked in the past 12 months: Yes Aproximately how many cigarettes per day: 12 - Alcohol/Substance Use Hx Alcohol Use: No History of Substance Use: reports: None - Social History ADL: Independent History of Recent Travel: Yes Home Medications - Allergies Allergies/Adverse Reactions: Allergies Allergy/AdvReac Type Severity Reaction Status Date / Time No Known Allergies Allergy Verified 07/17/13 10:42 - Home Medications Home Medications: Ambulatory Orders Aspirin [ASA -] 81 mg PO DAILY 05/28/18 Canagliflozin [Invokana] 100 mg PO DAILY 05/28/18 Sitagliptin Phos/Metformin HCl [Janumet 50-1,000 mg Tablet] 1 each PO DAILY 09/02 Physical Examination Vital Signs: Vital Signs Temperature 99.3 F 05/29/18 13:30 Pulse Rate 86 05/29/18 13:30 Respiratory Rate 18 05/29/18 13:30 Blood Pressure 126/87 05/29/18 13:30 O2 Sat by Pulse Oximetry (%) 94 L 05/29/18 09:00 Labs: CBC, BMP 05/29/18 05:30 05/29/18 05:30
[2018-05-30] MEDS: INSULIN SLIDING SCALE (NOVOLOG) 1 VIAL SQ SCH ×2 (06:27→10:39)
[2018-05-30] MEDS: metFORMIN HCL 500 MG TABLET (FP) PO SCH (06:27)
[2018-05-30] MEDS: sitaGLIPtin PHOSPHATE 50 MG TABLET PO SCH (06:29)
--- NOTE | 2018-05-30 08:31 | PN ---
Progress Note, Physician Chief Complaint: feels better No further pleuritic pain, no further pain laying flate Ambulating without pain. Denies EDWARDS. TELE: NSR - Current Medication List Current Medications: Active Medications Albuterol/Ipratropium (Duoneb -) 1 amp NEB Q6H PRN PRN Reason: SHORTNESS OF BREATH Aspirin (Asa -) 81 mg PO DAILY [facility] Last Admin: 05/29/18 09:52 Dose: 81 mg Heparin Sodium (Porcine) (Heparin -) 5,000 unit SQ BID [facility] Last Admin: 05/29/18 21:10 Dose: 5,000 unit Azithromycin 250 mg/ Dextrose 250 mls @ 250 mls/hr IVPB DAILY [facility] Last Admin: 05/29/18 11:44 Dose: 250 mls/hr Ceftriaxone Sodium 1 gm/ (Dextrose) 50 mls @ 100 mls/hr IVPB DAILY [facility]; Protocol Last Admin: 05/29/18 09:51 Dose: 100 mls/hr Insulin Aspart (Novolog Vial Sliding Scale -) 1 vial SQ ACHS [facility]; Protocol Last Admin: 05/30/18 06:27 Dose: Not Given Metformin HCl (Glucophage -) 1,000 mg PO DAILY@0700 [facility] Last Admin: 05/30/18 06:27 Dose: Not Given Morphine Sulfate (Morphine Sulfate) 4 mg IVPUSH Q6H PRN PRN Reason: PAIN LEVEL 6-10 Non-Formulary Medication (Canagliflozin [Invokana]) 100 mg PO DAILY [facility] Sitagliptin Phosphate (Januvia -) 50 mg PO DAILY@0700 [facility] Last Admin: 05/30/18 06:29 Dose: 50 mg - Objective Vital Signs: Vital Signs Temperature 98.4 F 05/30/18 05:00 Pulse Rate 102 H 05/30/18 05:00 Respiratory Rate 20 05/30/18 05:00 Blood Pressure 125/77 05/30/18 05:00 O2 Sat by Pulse Oximetry (%) 95 05/29/18 20:43 Constitutional: Yes: Calm Eyes: Yes: Conjunctiva Clear Cardiovascular: Yes: Regular Rate and Rhythm Respiratory: Yes: Other (clear without wheezng or rales) Gastrointestinal: Yes: Soft Edema: No Neurological: Yes: Alert, Oriented Labs: CBC, BMP 05/29/18 05:30 05/29/18 05:30 INR, PTT INR 0.94 (0.83-1.09) 05/28/18 08:04 Microbiology 05/28/18 17:06 Blood - Peripheral Venous Blood Culture - Preliminary NO GROWTH OBTAINED AFTER 24 HOURS, INCUBATION TO CONTINUE FOR 4 DAYS. 05/28/18 17:06 Blood - Peripheral Venous Blood Culture - Preliminary NO GROWTH OBTAINED AFTER 24 HOURS, INCUBATION TO CONTINUE FOR 4 DAYS. Laboratory Tests 05/28/18 05/28/18 05/28/18 08:04 11:29 17:06 WBC Hgb Plt Count Creatinine Creatine Kinase 117 81 74 Troponin I < 0.02 < 0.02 < 0.02 05/29/18 05/29/18 05:30 05:30 WBC 9.4 Hgb 14.9 Plt Count 203 D Creatinine 0.7 Creatine Kinase Troponin I - ....Imaging EKG: Image Reviewed (TELE: NSR.) Problem List - Problems (1) PNA (pneumonia) Code(s): J18.9 - PNEUMONIA, UNSPECIFIED ORGANISM Qualifiers: Pneumonia type: due to unspecified organism Laterality: bilateral (2) Diabetes mellitus Code(s): E11.9 - TYPE 2 DIABETES MELLITUS WITHOUT COMPLICATIONS Qualifiers: Diabetes mellitus type: type 2 Diabetes mellitus complication status: without complication (3) Pleuritic chest pain Code(s): R07.81 - PLEURODYNIA (4) Abnormal ECG Code(s): R94.31 - ABNORMAL ELECTROCARDIOGRAM [ECG] [EKG] (5) Leukocytosis Code(s): D72.829 - ELEVATED WHITE BLOOD CELL COUNT, UNSPECIFIED Qualifiers: Leukocytosis type: unspecified Qualified Code(s): D72.829 - Elevated white blood cell count, unspecified (6) Polycythemia due to fall in plasma volume Code(s): D75.1 - SECONDARY POLYCYTHEMIA (7) Azotemia Code(s): R79.89 - OTHER SPECIFIED ABNORMAL FINDINGS OF BLOOD CHEMISTRY Assessment/Plan IMP: 1. Type 2 DM 2. Pleuritic CP most likely secondary to bilateral PNA noted on chest CTA 3. Leukocytosis secondary to PNA- improved 4. Pre-renal azotemia, likely resulting from underlying systemic infection- improved 5. Polycythemia, likely reflecting a degree of hemoconcentration secondary to above also improved 6. Abnormal ECG: with diffuse early repolarization changes. Stable on serial exams. REC: 1. Blood cultures are negative. Hemodynamically stable. Switch PO abx as per PMD. Pre and post exercise O2, pulmonary f/u 2. Cardiac enzymes negative x 3 sets. 3. Telemetry unremarkable x 48 hours. 4. Hydration has improved azotemia and hemoconcentration and now normotensive. 5. BNP normal-and there is no clinical evidence of CHF. 7. Cont home ASA 81mg daily 8. Repeat ECGs stable. 9. DVT prophylaxis. 10. Recommend outpatient stress test when pulmonary condition resolved unless clinical change.
[2018-05-30] MEDS ORDERED: DEXTROSE 5%-WATER - 50 ML IVPB ONE (08:47)
[2018-05-30] MEDS ORDERED: cefTRIAXone SODIUM 1 GM VIAL ONE (08:47)
[2018-05-30] MEDS: HEPARIN NA (PORCINE) 5,000 UNITS/ML 1ML VIAL SQ SCH (09:08)
[2018-05-30] MEDS: ASPIRIN 81 MG CHEWABLE TABLETS PO SCH (09:08)
[2018-05-30] MEDS: CEFTRIAXONE 1 GM in DEXTROSE 5%-WATER - 50 ML IVPB SCH (09:09)
[2018-05-30] MEDS ORDERED: PT OWN MED DRAWER 7, Y5N ONE (10:18)
--- NOTE | 2018-05-30 10:30 | DS ---
Physical Exam: SUBJECTIVE: Patient seen and examined at bedside covering for Dr. Cruz no events overnight cleared by cardiology for discharge OBJECTIVE: Vital Signs Period Temp Pulse Resp BP Sys/Mei Pulse Ox Last 24 Hr 98 F-99.3 F 60-102 18-20 125-153/71-87 95 PHYSICAL EXAM GENERAL: The patient is awake, alert, and fully oriented, in no acute distress. HEAD: Normal with no signs of trauma. EYES: PERRL, extraocular movements intact, sclera anicteric, conjunctiva clear. ENT: moist mucous membranes. LUNGS: Breath sounds equal, clear to auscultation bilaterally, no wheezes, no crackles, no accessory muscle use. HEART: Regular rate and rhythm, S1, S2 without murmur, rub or gallop. ABDOMEN: Soft, nontender, nondistended, normoactive bowel sounds EXTREMITIES: warm, well-perfused, no edema. NEUROLOGICAL: Cranial nerves II through XII grossly intact. Normal speech PSYCH: Normal mood, normal affect. SKIN: Warm, dry LABS Laboratory Results - last 24 hr 05/29/18 05/29/18 05/29/18 11:43 17:11 21:08 POC Glucometer 140.08447 100.37775 115.11605 05/30/18 06:25 POC Glucometer 124 HOSPITAL COURSE: Date of Admission:05/29/18 Date of Discharge: 05/30/18 58M with history of DM and a long time smoker presented to the ER with chest tightness pain and shortness of breath. Patient was worked up for ACS and ruled out. Patient also had CTA of the chest and abdomen to r/o dissection and was negative. Consolidation seen and was treated with rocephin and azithromycin and improved. Stable for discharge with PMD, cardiology follow up, and outpatient stress testing. Will send home on 2 more days of antibiotics. received 3 days here Minutes to complete discharge: 35 Discharge Summary Reason For Visit: SENSATION OF CHEST TIGHTNESS Current Active Problems Abnormal ECG (Acute) Azotemia (Acute) Chest tightness (Acute) Diabetes mellitus (Acute) Leukocytosis (Acute) PNA (pneumonia) (Acute) Pleuritic chest pain (Acute) Polycythemia due to fall in plasma volume (Acute) Condition: Stable - Instructions Diet, Activity, Other Instructions: you were hospitlaized for chest tightness and discomfort. you were found to have a pneumonia. You were treated with antibiotics and you improved. You were seen by a heel stiffener and a workers compensation manager. Please follow up with your primary care doctor as soon as possible. Follow up with the heel stiffener Dr. Andrea for a stress test. continue your home medications. You will be prescribed antibiotics take 1 tablet of levaquin 500mg by mouth daily for 2 more days starting tomorrow. do not take the Janumet today because of the contrast you received. You can start it again tomorrow. It was a pleasure caring for you. Dr. Darrell Carson Referrals: Ignacio Andrea MD [Staff Physician] - 1 Week Sherif Radford MD [Primary Care Provider] - 1 Week Disposition: HOME - Home Medications Comprehensive Discharge Medication List: Ambulatory Orders Aspirin [ASA -] 81 mg PO DAILY 05/28/18 Canagliflozin [Invokana] 100 mg PO DAILY 05/28/18 Sitagliptin Phos/Metformin HCl [Janumet 50-1,000 mg Tablet] 1 each PO DAILY 09/02 levoFLOXacin [Levaquin -] 500 mg PO DAILY #2 tablet 05/30/18 This patient is new to me today: Yes Date on this admission: 05/30/18 Emergency Visit: Yes ED Registration Date: 05/29/18 Care time: The patient presented to the Emergency Department on the above date and was hospitalized for further evaluation of their emergent condition. Critical Care patient: No - Discharge Referral Referred to [facility] Med P.C.: No
[2018-05-30] MEDS: AZITHROMYCIN IVPB 250 MG in DEXTROSE 5%-WATER - 250 ML IVPB SCH (10:38)
--- NOTE | 2018-05-30 11:02 | PN ---
Teaching Attending Note Name of Resident: Darrell Carson ATTENDING PHYSICIAN STATEMENT I saw and evaluated the patient. I reviewed the resident's note and discussed the case with the resident. I agree with the resident's findings and plan as documented. SUBJECTIVE: Patient has no complaints. No further chest pain. OBJECTIVE: Vital Signs Period Temp Pulse Resp BP Sys/Mei Pulse Ox Last 24 Hr 98 F-99.3 F 60-102 18-20 125-153/71-87 95 HEART: S1S2, RRR LUNGS: Clear ABDOMEN: Obese, soft, non-tender, non-distended, normal BS EXTREMITIES: No edema Laboratory Results - last 24 hr 05/29/18 05/29/18 05/29/18 11:43 17:11 21:08 POC Glucometer 140.71794 100.08811 115.56885 05/30/18 06:25 POC Glucometer 124 Current Medications Generic Name Dose Route Start Last Admin Trade Name Freq PRN Reason Stop Dose Admin Albuterol/Ipratropium 1 amp 05/28/18 23:51 Duoneb - NEB Q6H PRN SHORTNESS OF BREATH Aspirin 81 mg 05/29/18 10:00 05/30/18 09:08 Asa - PO 81 mg DAILY [facility] Administration Heparin Sodium (Porcine) 5,000 unit 05/29/18 10:00 05/30/18 09:08 Heparin - SQ 5,000 unit BID [facility] Administration Azithromycin 250 mg/ Dextrose 250 mls @ 250 mls/hr 05/29/18 10:00 05/30/18 10 :38 IVPB 250 mls/hr DAILY [facility] Administration Ceftriaxone Sodium 1 gm/ 50 mls @ 100 mls/hr 05/29/18 10:00 05/30/18 09:09 Dextrose IVPB 100 mls/hr DAILY [facility] Administration Protocol Insulin Aspart 1 vial 05/29/18 07:00 05/30/18 10:39 Novolog Vial Sliding Scale - SQ Not Given ACHS [facility] Protocol Metformin HCl 1,000 mg 05/29/18 07:00 05/30/18 06:27 Glucophage - PO Not Given DAILY@0700 [facility] Morphine Sulfate 4 mg 05/28/18 23:56 Morphine Sulfate IVPUSH Q6H PRN PAIN LEVEL 6-10 Non-Formulary Medication 100 mg 05/29/18 10:00 Canagliflozin [Invokana] PO DAILY [facility] Sitagliptin Phosphate 50 mg 05/29/18 07:00 05/30/18 06:29 Januvia - PO 50 mg DAILY@0700 [facility] Administration ASSESSMENT AND PLAN: This is a 58 year old man with a history of type 2 DM who presented to the ED with chest pain. 1. Chest pain - Resolved - Likely pleuritic secondary to pneumonia - Troponins negative - Continue aspirin - Outpatient stress test 2. Pneumonia - Afebrile, WBC improved - Urine Legionella, Pneumococcus Ag negative - On ceftriaxone, Zithromax - Discharge on PO Levaquin 3. Type 2 diabetes mellitus - Continue Januvia, metformin, Invokana 4. Dehydration with hypotension, prerenal azotemia, and polycythemia - BP, BUN, Hgb improved with IV fluid 5. Nicotine dependence - Smoking cessation discussed 6. Obesity with BMI 34.1 7. Ok for discharge on Levaquin with outpatient cardiology, pulmonary follow- ups for stress test, PFTs, sleep apnea tara
[2018-05-30 13:26] VITALS: BP 131/98; PULSE 82; TEMP 98.7
== END 2018-05-30 12:02 | disposition home or self-care (01) | DRG 195 ==
LOC: JER 07:41 → JERBED 10:40 → J2W 20:00 → OBSVTOIN 05-29 → J4W 05-29 21:18
PROVIDERS: ADMIT Internal Medicine; ATTEND Internal Medicine
DX: J18.9 Pneumonia, unspecified organism (principal); E11.9 Type 2 diabetes mellitus without complications; F17.210 Nicotine dependence, cigarettes, uncomplicated; D75.1 Secondary polycythemia; Z79.84 Long term (current) use of oral hypoglycemic drugs; Z79.4 Long term (current) use of insulin; E66.9 Obesity, unspecified; Z68.34 Body mass index [BMI] 34.0-34.9, adult; E86.0 Dehydration; I95.9 Hypotension, unspecified
CPT/HCPCS: 36415; 71045-TC-FY; 71275-TC; 74174-TC; 80048; 80053; 81003; 82550; 82962; 83690; 83735; 83880; 84484; 85025; 85379; 85610; 86850; 86900; 86901; 87040; 87899; 90670; 93005; 93010; 93306-TC; 99285-25; G0378; J1644; J7030

== ENCOUNTER 2018-06-11 16:28 | Inpatient (IN) | payer BC ==
--- NOTE | 2018-06-11 16:48 | PDOC ---
Rapid Medical Evaluation Time Seen by Provider: 06/11/18 16:39 Medical Evaluation: Allergies Allergy/AdvReac Type Severity Reaction Status Date / Time No Known Allergies Allergy Verified 07/17/13 10:42 06/11/18 16:43 I have performed a brief in-person evaluation of this patient. The patient presents with a chief complaint of: smoker with h/o pleural effusion sent by cardialogist due to diffused CP with SOBx over a week worsening since this AM Pertinent physical exam findings: mild respiratory distress . Lungs CTA. heart RRR I have ordered the following: cardiac labs. CBC/CMP/ ekg/ cxr The patient will proceed to the ED for further evaluation. Discharge Disposition - Diagnosis Pleuritic chest pain - Referrals Referrals: Sherif Radford MD [Primary Care Provider] - - Patient Instructions - Post Discharge Activity
[2018-06-11 16:51] VITALS: BMI 35.4
--- NOTE | 2018-06-11 17:09 | PDOC ---
Attending Attestation - [facility] HPI: 06/11/18 19:01 The patient is a 58-year-old male with a past medical history significant for DM presents to the emergency department with chest pain. The patient presents with 2-3 days of constant pain to the chest, with radiation to the neck. The patient reports the pain is aggravated with deep breathing and lying flat. The patient reports taking 2 Tylenol and 1 dose of colchicine in the morning. The patient states he was at his cardiologists office earlier today who referred the patient to the ED. The patient reports the symptoms feel similar to the prior diagnosis of pneumonia. The patient states she was started on Ibuprofen 400mg on Saturday twice a day, for the pain, without improvement. The patient reports he was seen at Dr. Andrea office on 06/04/2018, where he had an Echo done. The patient reports the echo showed fluid around the heart. Denies the use of blood thinner. Allergies: NKA Social history: Current daily smoker. No past or present use of recreational drug use reported. Surgical history: None reported PCP: Sherif Radford - Physicial Exam PE: 06/11/18 19:09 GENERAL: Uncomfortable. Awake, alert, and fully oriented, in no acute distress HEAD: No signs of trauma EYES: PERRLA, EOMI, sclera anicteric, conjunctiva clear ENT: Auricles normal inspection, hearing grossly normal, nares patent, oropharynx clear without exudates. Moist mucosa NECK: Normal ROM, supple, no lymphadenopathy, JVD, or masses LUNGS: (+) tachypnic. Short of breath. Conversational dyspnea. clear to auscultation bilaterally. No wheezes, and no crackles HEART: Tachycardia. Pleuritic chest pain. normal S1 and S2, no murmurs, rubs or gallops ABDOMEN: (+) Obese. Soft, nontender, normoactive bowel sounds. No guarding, no rebound. No masses EXTREMITIES: No edema to the leg. Normal range of motion, no edema. No clubbing or cyanosis. No cords, erythema, or tenderness NEUROLOGICAL: Cranial nerves II through XII grossly intact. Normal speech. SKIN: Warm, Dry, normal turgor, no rashes or lesions noted. - Medical Decision Making 06/11/18 19:09 Documentation prepared by Jaycee Tamez, acting as medical care administrator for Mandy Chirinos DO. 06/11/18 19:[address] Cruz at 7:03 pm, waiting for a call back. <Jaycee Tamez - Last Filed: 06/11/18 19:12> - Resident Resident Name: Aravind Alonzo - ED Attending Attestation I have performed the following: I have examined & evaluated the patient, The case was reviewed & discussed with the resident, I agree w/resident's findings & plan, Exceptions are as noted - Medical Decision Making 06/11/18 17:09 I, Dr. Mandy Chirinos, DO, attest that this document has been prepared under my direction and personally reviewed by me in its entirety. I further attest, that it accurately reflects all work, treatment, procedures and medical decision -making performed by me. 06/11/18 18:02 vitals: HR 112, Pulse ox 95% ra, BP 112/72 a/p: 58yo male with recent dx of pericarditis on ibuprofen and colchicine -pt with worsening cp today -sent by Dr. Andrea for obs placement for pain control and echo -per Dr. Andrea - increase NSAID use to q8hr -pt unable to lay flat bc of pleuritic cp -pt tachypnic and tachy -will obtain labs, ekg, cxr -will perform bedside echo to eval for pericardial effusion 06/11/18 18:16 bedside ultrasound echo does not show a pericardial effusion, pt is tachy 06/11/18 19:52 resident discussed the case with Dr. Cruz who accepts the patient to service <Mandy Chirinos - Last Filed: 06/11/18 19:52> Heart Score/ECG Review - ECG Intrepretation Comment:: 06/11/18 18:55 sinus tach at 106, nl axis, nl interval, no acute st/t waver findings 06/11/18 18:55 no MO depression or YESENIA <Mandy Chirinos - Last Filed: 06/11/18 19:52>
--- NOTE | 2018-06-11 17:13 | PDOC ---
History of Present Illness - General Chief Complaint: Chest Pain Stated Complaint: CHEST PAIN Time Seen by Provider: 06/11/18 16:39 - History of Present Illness Initial Comments: 06/11/18 17:08 58 yo M with h/o DM who p/w chest pain. Patient reports 2-3 weeks of worsening, diffuse, pleuritic chest pain, with intermittent sharp and dull sensation and radiation to BL posterior neck. Chest pain worse with deep inhalation, and normal breathing. Pain also worse with supine position change. Denies h/o chest pain in past. Patient with recent admission to hospital, chest CTA 05/28 with bibasilar atelectasis and consolidation, pericardial effusion, (05/30/18) and discharged on Levaquin. Denies trauma to chest. Pain not improved with 400 mg Ibuprofen. Patient denies N/V, F/C, cough, sputum production, palpitations, leg swelling/ pain, orthopnea, PND, SOB, urinary complaints, abdominal pain, diarrhea, constipation, lightheadedness, weakness, sensory changes. PMHx: as noted above. Denies h/o ACS/MD, stent placement, CABG, or stress testing. Denies PE/DVT. ROS: as noted SHx: 1 ppd x 30 years tobacco use. Denies IVDA. Allergies: NKDA PMD: Sherif Radford Past History - Past Medical History Allergies/Adverse Reactions: Allergies Allergy/AdvReac Type Severity Reaction Status Date / Time No Known Allergies Allergy Verified 06/11/18 16:46 Home Medications: Ambulatory Orders Aspirin [ASA -] 81 mg PO DAILY 05/28/18 Canagliflozin [Invokana] 100 mg PO DAILY 05/28/18 Sitagliptin Phos/Metformin HCl [Janumet 50-1,000 mg Tablet] 1 each PO DAILY 09/02 levoFLOXacin [Levaquin -] 500 mg PO DAILY #2 tablet 05/30/18 Anemia: No Asthma: No Cancer: No COPD: No Diabetes: Yes Kidney Stones: No Seizures: No Lung CA: No - Surgical History Abdominal Surgery: No Cholecystectomy: No Gastric Stapling: No Neurologic Surgery: No - Immunization History Immunization Up to Date: No - Suicide/Smoking/Psychosocial Hx Smoking Status: Yes Smoking History: Current some day smoker Have you smoked in the past 12 months: Yes Number of Cigarettes Smoked Daily: 12 Information on smoking cessation initiated: No 'Breaking Loose' booklet given: 05/28/18 Hx Alcohol Use: No Drug/Substance Use Hx: No Substance Use Type: None Hx Substance Use Treatment: No Review of Systems - Review of Systems Comments:: 06/11/18 17:08 GENERAL/CONSTITUTIONAL: No fever or chills. No weakness. HEAD, EYES, EARS, NOSE AND THROAT: No change in vision. No ear pain or discharge. No sore throat. CARDIOVASCULAR: +chest pain. No shortness of breath RESPIRATORY: No cough, wheezing, or hemoptysis. GASTROINTESTINAL: No nausea, vomiting, diarrhea or constipation. GENITOURINARY: No dysuria, frequency, or change in urination. MUSCULOSKELETAL: No joint or muscle swelling or pain. No neck or back pain. SKIN: No rash NEUROLOGIC: No headache, vertigo, loss of consciousness, or change in strength/ sensation. ENDOCRINE: No increased thirst. No abnormal weight change HEMATOLOGIC/LYMPHATIC: No anemia, easy bleeding, or history of blood clots. ALLERGIC/IMMUNOLOGIC: No hives or skin allergy. *Physical Exam - Vital Signs Last Vital Signs Temp Pulse Resp BP Pulse Ox 99 F 20 L 18 130/74 99 06/11/18 16:46 06/11/18 16:46 06/11/18 16:46 06/11/18 16:46 06/11/18 16:46 - Physical Exam Comments: 06/11/18 17:08 GENERAL: Awake, alert, and fully oriented. HEAD: No signs of trauma, normocephalic, atraumatic EYES: PERRLA, EOMI, sclera anicteric, conjunctiva clear ENT: Hearing grossly normal, nares patent, oropharynx clear without exudates. Moist mucosa NECK: Normal ROM, supple, no lymphadenopathy, JVD, or masses LUNGS: No distress, speaks full sentences, clear to auscultation bilaterally HEART: Regular rate and rhythm, normal S1 and S2, no murmurs, rubs or gallops, peripheral pulses normal and equal bilaterally. EXTREMITIES : Normal inspection, Normal range of motion, no edema. No clubbing or cyanosis. SKIN: Warm, Dry, normal turgor, no rashes or lesions noted ED Treatment Course - LABORATORY CBC & Chemistry Diagram: 06/11/18 17:23 06/11/18 17:23 Medical Decision Making - Medical Decision Making 06/11/18 17:11 58 yo M with h/o DM who p/w diffuse, pleuritic chest pain. HR 112, vitals otherwise wnl, AF. ACS/MD r/o. R/o PNA. PERC NEG PE. Low suspicion AAA, Ao dissection. Possible Pericarditis. R/o cardiac tamponade. Unlikely, COPD, asthma, CHF. Will provide analgesia and reassess. ED Course: CBC, CMP, Cardiac Pr. EKG, CXR Colchicine 0.6,Toradol 30 mg IVP 06/11/18 18:56 WBC: 15.9 CMP: Unremarkable EKG: Sinus tachycardia 106, with absent YESENIA, STD, MO depression. Normal axis and interval duration.Similiar to prior EKG (05/28/18) Trop: Neg No abnml findings seen on bedside cardiac U/S Admit to [facility] for Pericarditis intractable chest pain. *DC/Admit/Observation/Transfer Diagnosis at time of Disposition: Pleuritic chest pain - Discharge Dispostion Condition at time of disposition: Stable Decision to Admit order: Yes - Referrals Referrals: Sherif Radford MD [Primary Care Provider] - - Patient Instructions - Post Discharge Activity - Attestations Physician Attestion: 06/11/18 19:36 I attest to the information provided in this note.
[2018-06-11 17:48] LABS: BASO % 0.9 % (0-2.0); EOS % 0.9 % (0-4.5); HEMOGLOBIN 16.1 GM/dL (11.7-16.9); LYMPH % 7.5 % (8-40); MCH 30.5 pg (25.7-33.7); MCHC 32.9 g/dl (32.0-35.9); MEAN CELL VOLUME 92.8 fl (80-96); MONO % 10.1 % (3.8-10.2); NEUT % 80.6 % (42.8-82.8); PLATELET COUNT 377 K/MM3 (134-434); RBC 5.27 M/mm3 (4.00-5.60); RDW 13.4 % (11.9-15.9); WHITE BLOOD COUNT 15.9 K/mm3 (4.0-10.0)
[2018-06-11] MEDS ORDERED: KETOROLAC TROMETHAMINE 30 MG/1 ML VIAL IVPUSH ONE (17:50)
[2018-06-11 18:13] LABS: ALBUMIN 3.6 g/dl (3.4-5.0); ALK PHOS 96 U/L (45-117); ANION GAP 7 MMOL/L (8-16); BILIRUBIN,TOTAL 0.5 mg/dL (0.2-1); BLOOD UREA NITROGEN 20 mg/dL (7-18); CHLORIDE 105 mmol/L (98-107); CO2 22 mmol/L (21-32); CREATININE 0.7 mg/dL (0.55-1.3); GLUCOSE,RANDOM 152 mg/dL (74-106); POTASSIUM 4.4 mmol/L (3.5-5.1); SGOT/AST 13 U/L (15-37); SGPT/ALT 29 U/L (13-61); SODIUM 134 mmol/L (136-145); TOT PROT 7.4 g/dl (6.4-8.2)
[2018-06-11] MEDS ORDERED: COLCHICINE 0.6 MG TABLET (FP) ONE (18:27)
[2018-06-11] MEDS ORDERED: KETOROLAC TROMETHAMINE 30 MG/1 ML VIAL ONE (18:28)
[2018-06-11] MEDS ORDERED: COLCHICINE 0.6 MG TABLET (FP) PO ONE (19:13)
[2018-06-11] MEDS ORDERED: ONDANSETRON 4 MG/2 ML VIAL IVPUSH ONE (20:35)
[2018-06-11] MEDS ORDERED: morphine CARPU-JECT 4 MG/1 ML DISP.SYRIN IVPUSH ONE (20:35)
[2018-06-11] MEDS ORDERED: ONDANSETRON 4 MG/2 ML VIAL ONE (20:48)
[2018-06-11] MEDS ORDERED: morphine SULFATE 4 MG/ML VIAL ONE (20:48)
--- NOTE | 2018-06-11 21:41 | CON.CARD ---
Cardiology Consult (text) - Consultation Consultation Note: Brief Cardiology note 58 M recently admitted here with pleuritic CP, CTA negative for pulmonary embolism and cardiac enzymes negativ: found to have b/l PNA treated with abx. Soon after discharge presented to office with recurrent pleuritic CP- very typical for pericarditis and repeat echo last week showed a trivial pericardial effusion. Was started on Ibuprofen 400mg BID and Colchicine 0.6 BID with initial improvement in sx. Today, called the office twice with recurrent positional CP and pleuritic type pain- I referred him to ER for CXR, labs and repeat echo and cardiac enzymes to r/o myopericarditis. REC: 1. Initial TnI negative, rules out myocarditis 2. Repeat echo to re-eval effusion 3. Increase Ibuprofen to 400mg TID with Colchicine 4. Pulmonary and ID evaluation, blood cultures. 5. Stress testing was deferred in the setting of acute pericarditis, with a plan perform when sx resolved. 6. Supplimental O2, consider repeat chest CT- will defer to Pulmonary.
[2018-06-11] MEDS ORDERED: COLCHICINE 0.6 MG TABLET (FP) PO SCH ×2 (22:00)
[2018-06-12] MEDS: IBUPROFEN 400 MG TABLET (FP) PO SCH ×3 (01:05→16:13)
[2018-06-12 06:08] LABS: BASO % 0.4 % (0-2.0); EOS % 2.7 % (0-4.5); HEMOGLOBIN 14.8 GM/dL (11.7-16.9); LYMPH % 14.3 % (8-40); MCH 31.3 pg (25.7-33.7); MCHC 33.6 g/dl (32.0-35.9); MONO % 17.3 % (3.8-10.2); NEUT % 65.3 % (42.8-82.8); PLATELET COUNT 286 K/MM3 (134-434); RBC 4.73 M/mm3 (4.00-5.60); RDW 13.6 % (11.9-15.9); WHITE BLOOD COUNT 10.4 K/mm3 (4.0-10.0)
[2018-06-12 06:28] LABS: ALBUMIN 3.3 g/dl (3.4-5.0); ALK PHOS 84 U/L (45-117); ANION GAP 10 MMOL/L (8-16); BILIRUBIN,TOTAL 0.8 mg/dL (0.2-1); BLOOD UREA NITROGEN 26 mg/dL (7-18); CALCIUM 8.9 mg/dL (8.5-10.1); CHLORIDE 101 mmol/L (98-107); CO2 27 mmol/L (21-32); GLUCOSE,RANDOM 125 mg/dL (74-106); POTASSIUM 4.4 mmol/L (3.5-5.1); SGOT/AST 9 U/L (15-37); SGPT/ALT 27 U/L (13-61); SODIUM 137 mmol/L (136-145); TOT PROT 6.6 g/dl (6.4-8.2)
[2018-06-12] MEDS: metFORMIN HCL 500 MG TABLET (FP) PO SCH (06:41)
[2018-06-12] MEDS: sitaGLIPtin PHOSPHATE 50 MG TABLET PO SCH (06:41)
[2018-06-12] MEDS ORDERED: IBUPROFEN 400 MG TABLET (FP) PO SCH (07:00)
--- NOTE | 2018-06-12 08:47 | PN ---
Progress Note, Physician Chief Complaint: seen and examined on tele Pain is improved- still positional and with deep breathing CRP is elevated. ECG reviewed, unchanged from prior admissions. NSR with early repol changes. No sig ST depressions. Cardiac enzymes are negative. - Current Medication List Current Medications: Active Medications Aspirin (Asa -) 81 mg PO DAILY [facility] Colchicine (Colcrys -) 0.6 mg PO BID [facility] Heparin Sodium (Porcine) (Heparin -) 5,000 unit SQ BID [facility] Ibuprofen (Motrin -) 400 mg PO 0000,0800,1600 [facility] Last Admin: 06/12/18 01:05 Dose: 400 mg Metformin HCl (Glucophage -) 1,000 mg PO ACBK [facility] Last Admin: 06/12/18 06:41 Dose: 1,000 mg Non-Formulary Medication (Canagliflozin [Invokana]) 100 mg PO DAILY [facility] Pantoprazole Sodium (Protonix -) 40 mg PO DAILY [facility] Sitagliptin Phosphate (Januvia -) 50 mg PO DAILY@0700 [facility] Last Admin: 06/12/18 06:41 Dose: 50 mg - Objective Vital Signs: Vital Signs Temperature 97.6 F 06/12/18 06:00 Pulse Rate 83 06/12/18 06:00 Respiratory Rate 18 06/12/18 06:00 Blood Pressure 124/83 06/12/18 06:00 O2 Sat by Pulse Oximetry (%) 93 L 06/11/18 23:00 Constitutional: Yes: No Distress, Calm Eyes: Yes: Conjunctiva Clear Cardiovascular: Yes: Regular Rate and Rhythm (no murmurs , rubs or gall) Respiratory: Yes: CTA Bilaterally (no wheezing, no rales) Gastrointestinal: Yes: Soft Edema: No (Eliel's neg b/l) Neurological: Yes: Alert, Oriented ...Motor Strength: WNL Labs: CBC, BMP 06/12/18 05:30 06/12/18 05:30 Laboratory Tests 06/11/18 06/11/18 06/12/18 17:23 17:23 00:25 WBC 15.9 H Hgb Hct Plt Count Sodium Potassium BUN Creatinine Creatine Kinase 71 70 Troponin I < 0.02 < 0.02 C-Reactive Protein 06/12/18 06/12/18 05:30 05:30 WBC 10.4 H Hgb 14.8 Hct 44.0 Plt Count 286 D Sodium 137 Potassium 4.4 BUN 26 H Creatinine 1.0 Creatine Kinase Troponin I C-Reactive Protein 11.0 H - ....Imaging EKG: Image Reviewed Assessment/Plan IMP: Recent b/l PNA Pericarditis with trace pericardial effusion: TnI negative. REC: 1. 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 PPI 3. To repeat echo to evaluate pericardial effusion 4. Pulmonary and ID eval, to f/u on PNA.
--- NOTE | 2018-06-12 09:35 | EKG ---
Test Reason : Blood Pressure : / mmHG Vent. Rate : 106 BPM Atrial Rate : 106 BPM P-R Int : 132 ms QRS Dur : 082 ms QT Int : 328 ms P-R-T Axes : 042 011 046 degrees QTc Int : 435 ms SINUS TACHYCARDIA OTHERWISE NORMAL ECG WHEN COMPARED WITH ECG OF 29-MAY-2018 10:06, NO SIGNIFICANT CHANGE WAS FOUND Confirmed by DAX MCGREGOR MD ([id number]) on 06/12/2018 9:35:33 AM Referred By: Confirmed By:DAX MCGREGOR MD
[2018-06-12 09:48] LABS: ERYTHROCYTE SEDIMENTATION RATE 17 mm/hr (0-20)
[2018-06-12] MEDS ORDERED: PATIENT'S OWN MEDICATION (NON-FORMULARY) (Sitagliptin Phos/Metformin Hcl [Janumet 50-1,000 PO SCH (10:00)
[2018-06-12] MEDS ORDERED: ASPIRIN 81 MG CHEWABLE TABLETS PO SCH (10:00)
[2018-06-12] MEDS ORDERED: PATIENT'S OWN MEDICATION (NON-FORMULARY) (Canagliflozin [Invokana] 100 MG) PO SCH (10:00)
--- NOTE | 2018-06-12 11:40 | PN ---
Progress Note (short form) - Note Progress Note: ID Consult dictated Pericarditis Doubt suppurative pericarditis S/P treatment for pneumonia Observe off antibiotics HIV test ( pt gives verbal consent) KIMBER
--- NOTE | 2018-06-12 11:47 | ECHO ---
Name: FRANKY DONNELLY Exam:Adult Echocardiogram Study Date: 06/12/2018 08:50 AM Age: 58 yrs Reason For Study: PERICARDITIS Height: 69 in Weight: 240 lb BSA: 2.2 m2 MMode/2D Measurements & Calculations IVSd: 1.3 cm Ao root diam: 2.5 cm LVIDd: 3.7 cm LA dimension: 2.7 cm LVIDs: 2.8 cm LVPWd: 1.0 cm EDV(Teich): 59.3 ml LAV (MOD-bp): 27.2 ml ESV(Teich): 28.2 ml Doppler Measurements & Calculations MV E max tavo: 74.2 cm/sec AI P1/2t: 577.7 msec MV A max tavo: 89.2 cm/sec MV E/A: 0.83 MV dec time: 0.14 sec AI max tavo: 365.0 cm/sec TR max tavo: 213.0 cm/sec AI max P.3 mmHg TR max P.1 mmHg AI dec slope: 185.0 cm/sec2 Med Peak E' Tavo: 6.1 cm/sec PI Vmax: 92.3 cm/sec Med E/e': 12.2 Lat Peak E' Tavo: 5.1 cm/sec Lat E/e': 14.5 Procedure A complete two-dimensional transthoracic echocardiogram was performed (2D, M-mode, Doppler and color flow Doppler). Left Ventricle The left ventricular size, thickness and function are normal. The left ventricular ejection fraction is normal. Ejection Fraction = 55-60%. The left ventricular wall motion is normal. Right Ventricle The right ventricle is normal in size and function. Atria Normal left and right atrial size and function. Mitral Valve There is trace mitral regurgitation. Tricuspid Valve No tricuspid regurgitation. There was insufficient TR detected to calculate RV systolic pressure. Aortic Valve No hemodynamically significant valvular aortic stenosis. No aortic regurgitation is present. Pulmonic Valve There is no pulmonic valvular regurgitation. Great Vessels The aortic root is normal size. Pericardium/Pleura There is no pericardial effusion. Interpretation Summary The left ventricular size, thickness and function are normal. The right ventricle is normal in size and function. There is trace mitral regurgitation. MD David Lopez 06/12/2018 11:47 AM
[2018-06-12] MEDS: PANTOPRAZOLE 40 MG TABLET (FP) PO SCH (11:56)
[2018-06-12] MEDS: COLCHICINE 0.6 MG TABLET (FP) PO SCH ×2 (11:56→21:07)
[2018-06-12] MEDS: HEPARIN NA (PORCINE) 5,000 UNITS/ML 1ML VIAL SQ SCH ×2 (11:56→21:07)
--- NOTE | 2018-06-12 12:12 | CONS ---
INFECTIOUS DISEASE CONSULTATION DATE OF CONSULTATION: DATE OF DICTATION: 06/12/2018 The patient is a 58-year-old diabetic male who is evaluated for possible pneumonia. He was admitted to [facility] 2 weeks ago after onset of chest pain. He had a CAT scan at that time which was negative for acute pulmonary embolism. CAT scan showed bibasilar infiltrates. He received Zithromax and ceftriaxone for several days before being discharged on oral antibiotic therapy for several days (Levaquin). He now returns with recurrent chest pain and shortness of breath. The pain was described as sharp in nature in the anterior chest, radiating to the neck bilaterally. It is worsening by lying flat and with deep inspiration. He was seen by Cardiology and diagnosed with pericarditis. He was treated with colchicine and a nonsteroidal. Chest x-ray shows bilateral atelectasis versus consolidation. Infectious disease consultation requested for continued treatment for pneumonia. He is clinically stable. He denies any chest pain at the present time. He is more comfortable. He denies any cough, sputum production, hemoptysis. Denies any fever or chills. He denies any recent febrile illness or flu-like illness. 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 He is a smoker. Denies recent travel or significant pet exposure. His HIV status is not known. PPD done prior to admission was negative. PAST MEDICAL HISTORY: Positive for diabetes mellitus. ALLERGIES: No known allergies. MEDICATIONS: Include Invokana, heparin, colchicine, Glucophage, Januvia, Motrin, Protonix. SOCIAL HISTORY: Smoker. 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 Denies recent travel. SYSTEMS REVIEW: Neurologic: No loss of consciousness, seizure activity, focal weakness. Cardiac: As per HPI. Respiratory: As per HPI. Gastrointestinal: Negative vomiting or diarrhea. Genitourinary: Negative for urinary tract infection. A urine culture from 2012 was positive for ESBL. He has no urinary tract symptoms at this time. LABORATORY DATA: White count 15.9 on admission, hematocrit 44.0, platelets 286. BUN 26, creatinine 1.0. Liver enzymes normal. C-reactive protein 11. ESR 17. Blood cultures are pending. Urine legionella and pneumococcal antigens from September 29 negative. PHYSICAL EXAMINATION: General: He is out of bed to chair. He is not acutely toxic appearing, in no acute distress. Vital Signs: Temperature 97.8; he has been afebrile. Blood pressure 128/78; pulse 85, regular; respirations 20 per minute. HEENT: Sclerae are anicteric. Heart: Sounds S1, S2. No murmur. Lungs: Clear. Diminished breath sounds at the bases. Abdomen: Obese, soft, nontender. Extremities: Negative for edema. IMPRESSION: 1. Pericarditis, likely viral etiology. 2. Doubt suppurative pericarditis. 3. Status post treatment for pneumonia. At the present time, patient has no clinical signs or symptoms suggestive of pneumonia. Chest x-ray and CAT scan findings may be on the basis on atelectasis secondary to his pleuritic-type chest pain. He is afebrile. He received a course of antibiotic therapy. Would observe off antibiotic therapy. Obtain HIV test and KIMBER for completeness. The patient gives verbal consent for HIV testing. Will repeat urinalysis and urine culture in light of previous history of ESBL. Thank you for the kind referral. TRACY DAVENPORT M.D. [id number]
--- NOTE | 2018-06-12 13:32 | CON.PULM ---
Consult Consult Specialty:: PULMONARY Referred by:: Dr. Andrea Reason for Consultation:: chest pain - History of Present Illness Chief Complaint: chest pain History of Present Illness: 58yo male with h/o DM, recent pneumonia 2 weeks ago treated with antibiotics who developed recurrent pleuritic type chest pain. Started on ibuprofen and colchicine with improvement in symptoms but pain started to come back in same manner described as sharp, positional and worse with deep inspiration. Currently feeling better. +nonproductive cough without wheezing. No fevers, chills or sweats. He is a smoker started in his teens, smokes on average 1 PPD. Denies any history of asthma or COPD. - History Source History Provided By: Patient, Medical Record Limitations to Obtaining History: No Limitations - Past Medical History Endocrine: Yes: Diabetes Mellitus Additional Medical History: No significant PMHx - Past Surgical History Past Surgical History: Yes: None - Alcohol/Substance Use Hx Alcohol Use: No History of Substance Use: reports: None - Smoking History Smoking history: Current some day smoker Have you smoked in the past 12 months: Yes Aproximately how many cigarettes per day: 12 - Social History Usual Living Arrangement: With Spouse ADL: Independent History of Recent Travel: Yes Home Medications - Allergies Allergies/Adverse Reactions: Allergies Allergy/AdvReac Type Severity Reaction Status Date / Time No Known Allergies Allergy Verified 06/11/18 16:46 - Home Medications Home Medications: Ambulatory Orders Aspirin [ASA -] 81 mg PO DAILY 05/28/18 Canagliflozin [Invokana] 100 mg PO DAILY 05/28/18 Sitagliptin Phos/Metformin HCl [Janumet 50-1,000 mg Tablet] 1 each PO DAILY 09/02 Review of Systems - Review of Systems Constitutional: reports: Weakness. denies: Chills, Fever Eyes: denies: Recent Change in Vision HENT: denies: Nasal Congestion, Throat Pain Neck: denies: Stiffness, Tenderness Cardiovascular: reports: Chest Pain, Shortness of Breath. denies: Palpitations Respiratory: reports: Cough, SOB. denies: Hemoptysis, Wheezing Gastrointestinal: denies: Abdominal Pain, Nausea, Vomiting Genitourinary: denies: Dysuria, Hematuria Neurological: denies: Dizziness, Headache Endocrine: denies: Unexplained Weight Loss Physical Exam Vital Sings: Vital Signs Temperature 97.8 F 06/12/18 09:22 Pulse Rate 85 06/12/18 09:22 Respiratory Rate 20 06/12/18 09:22 Blood Pressure 128/78 06/12/18 09:22 O2 Sat by Pulse Oximetry (%) 93 L 06/11/18 23:00 Constitutional: Yes: Calm Eyes: Yes: Conjunctiva Clear, EOM Intact HENT: Yes: Atraumatic, Normocephalic Neck: Yes: Supple, Trachea Midline Cardiovascular: Yes: Regular Rate and Rhythm Respiratory: Yes: Regular, CTA Bilaterally ...Clubbing: No Gastrointestinal: Yes: Normal Bowel Sounds, Soft. No: Tenderness Edema: No Neurological: Yes: Alert, Oriented Labs: CBC, BMP 06/12/18 05:30 06/12/18 05:30 Imaging - Results Chest X-ray: Report Reviewed, Image Reviewed (bibasilar atelectasis) Problem List - Problems (1) Pleuritic chest pain Code(s): R07.81 - PLEURODYNIA (2) Pericarditis Code(s): I31.9 - DISEASE OF PERICARDIUM, UNSPECIFIED (3) Atelectasis Code(s): J98.11 - ATELECTASIS (4) Diabetes mellitus Code(s): E11.9 - TYPE 2 DIABETES MELLITUS WITHOUT COMPLICATIONS Qualifiers: Diabetes mellitus type: type 2 Diabetes mellitus complication status: without complication Assessment/Plan Pleuritic Chest Pain Pericarditis Atelectasis DM - incentive spirometry - CXR findings likely due to atelectasis from splinting due to his chest pain - continue anti-inflammatory agents - can consider short course of steroids if pain not controlled - DVT prophylaxis Thank you for this consult Christiano Garcia MD
--- NOTE | 2018-06-12 16:11 | HP ---
Admitting History and Physical - Admission History of Present Illness: Pt is a 58 y/o male w/ PMH significant for diabetes who was recently admitted here with pleuritic CP, CTA negative for pulmonary embolism and cardiac enzymes negative however pt found to have pneumonia and treated w/ abx. Patient reports 2-3 weeks of worsening, diffuse, pleuritic chest pain, with intermittent sharp and dull sensation and radiation to BL posterior neck. Chest pain worse with deep inhalation, and normal breathing. Pain also worse with supine position change. 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 and had repeat echo last week wc showed a trivial pericardial effusion and was started on Ibuprofen 400mg BID and Colchicine 0.6 BID with initial improvement in sx. - Past Medical History Endocrine: Yes: Diabetes Mellitus - Past Surgical History Past Surgical History: Yes: None - Smoking History Smoking history: Current some day smoker Have you smoked in the past 12 months: Yes Aproximately how many cigarettes per day: 12 - Alcohol/Substance Use Hx Alcohol Use: No History of Substance Use: reports: None - Social History ADL: Independent History of Recent Travel: Yes Home Medications - Allergies Allergies/Adverse Reactions: Allergies Allergy/AdvReac Type Severity Reaction Status Date / Time No Known Allergies Allergy Verified 06/11/18 16:46 - Home Medications Home Medications: Ambulatory Orders Aspirin [ASA -] 81 mg PO DAILY 05/28/18 Canagliflozin [Invokana] 100 mg PO DAILY 05/28/18 Sitagliptin Phos/Metformin HCl [Janumet 50-1,000 mg Tablet] 1 each PO DAILY 09/02 Family Disease History - Family Disease History Family History: Unremarkable Review of Systems - Review of Systems Constitutional: reports: No Symptoms HENT: reports: No Symptoms Neck: reports: No Symptoms Cardiovascular: reports: Chest Pain Respiratory: reports: No Symptoms Gastrointestinal: reports: No Symptoms Physical Examination Vital Signs: Vital Signs Temperature 97.9 F 06/12/18 14:10 Pulse Rate 81 06/12/18 14:10 Respiratory Rate 16 06/12/18 14:10 Blood Pressure 109/68 06/12/18 14:10 O2 Sat by Pulse Oximetry (%) 93 L 06/11/18 23:00 Constitutional: Yes: Well Nourished HENT: Yes: WNL Neck: Yes: WNL, Supple Cardiovascular: Yes: WNL, Regular Rate and Rhythm Respiratory: Yes: WNL, Regular, CTA Bilaterally Gastrointestinal: Yes: WNL, Normal Bowel Sounds, Soft Extremities: Yes: WNL Edema: No Neurological: Yes: WNL, Alert, Oriented ...Motor Strength: WNL Labs: CBC, BMP 06/12/18 05:30 06/12/18 05:30 Problem List - Problems (1) Pericarditis Assessment/Plan: Admitted to [facility] Pericarditis Cont colchicine/ibuprofen Pulmonary/cardio/ID consults noted Code(s): I31.9 - DISEASE OF PERICARDIUM, UNSPECIFIED (2) Diabetes mellitus Assessment/Plan: Cont meds Cont sliding scale w/ cpverage Code(s): E11.9 - TYPE 2 DIABETES MELLITUS WITHOUT COMPLICATIONS Qualifiers: Diabetes mellitus type: type 2 Diabetes mellitus complication status: without complication
[2018-06-12] MEDS ORDERED: COLCHICINE 0.6 MG TABLET (FP) PO ONE (17:50)
[2018-06-13] MEDS: IBUPROFEN 400 MG TABLET (FP) PO SCH ×3 (00:07→16:14)
[2018-06-13] MEDS: metFORMIN HCL 500 MG TABLET (FP) PO SCH (06:32)
[2018-06-13] MEDS: sitaGLIPtin PHOSPHATE 50 MG TABLET PO SCH (06:32)
--- NOTE | 2018-06-13 08:54 | PN ---
Progress Note, Physician Chief Complaint: feeling much better No further pleuritic pain, no further positional pain TELE: NSR All TnIs negative ECHO: normal LV fx, no pericardial effusion - Current Medication List Current Medications: Active Medications Colchicine (Colcrys -) 0.6 mg PO BID [facility] Last Admin: 06/12/18 21:07 Dose: 0.6 mg Heparin Sodium (Porcine) (Heparin -) 5,000 unit SQ BID [facility] Last Admin: 06/12/18 21:07 Dose: 5,000 unit Ibuprofen (Motrin -) 400 mg PO 0000,0800,1600 [facility] Last Admin: 06/13/18 00:07 Dose: 400 mg Metformin HCl (Glucophage -) 1,000 mg PO ACBK [facility] Last Admin: 06/13/18 06:32 Dose: 1,000 mg Non-Formulary Medication (Canagliflozin [Invokana]) 100 mg PO DAILY [facility] Pantoprazole Sodium (Protonix -) 40 mg PO DAILY [facility] Last Admin: 06/12/18 11:56 Dose: 40 mg Sitagliptin Phosphate (Januvia -) 50 mg PO DAILY@0700 [facility] Last Admin: 06/13/18 06:32 Dose: 50 mg - Objective Vital Signs: Vital Signs Temperature 97.8 F 06/13/18 07:56 Pulse Rate 88 06/13/18 07:56 Respiratory Rate 19 06/13/18 07:56 Blood Pressure 100/61 06/13/18 07:56 O2 Sat by Pulse Oximetry (%) 96 06/12/18 21:00 Constitutional: Yes: Calm Cardiovascular: Yes: Regular Rate and Rhythm, Other (no rub) Respiratory: Yes: CTA Bilaterally Gastrointestinal: Yes: Soft Edema: No Neurological: Yes: Alert, Oriented Labs: CBC, BMP 06/12/18 05:30 06/12/18 05:30 - ....Imaging EKG: Image Reviewed (NSR) Assessment/Plan IMP: Recent b/l PNA Pericarditis with trace pericardial effusion: TnI negative. REC: 1. 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 Would avoid steroids acutely as this may increase risk of recurrence. 2. PPI 3. Repeat echo stable, no sig effusion. 4. Pulmonary and ID eval, to f/u on PNA. D/C Planning.
[2018-06-13] MEDS: COLCHICINE 0.6 MG TABLET (FP) PO SCH (09:12)
[2018-06-13] MEDS: HEPARIN NA (PORCINE) 5,000 UNITS/ML 1ML VIAL SQ SCH (09:12)
[2018-06-13] MEDS: PANTOPRAZOLE 40 MG TABLET (FP) PO SCH (09:13)
--- NOTE | 2018-06-13 12:52 | PN ---
Progress Note, Physician History of Present Illness: pulmonary alert,feeling better,sitting up in bed,-cp,-sob - Current Medication List Current Medications: Active Medications Colchicine (Colcrys -) 0.6 mg PO BID [facility] Last Admin: 06/13/18 09:12 Dose: 0.6 mg Heparin Sodium (Porcine) (Heparin -) 5,000 unit SQ BID [facility] Last Admin: 06/13/18 09:12 Dose: 5,000 unit Ibuprofen (Motrin -) 400 mg PO 0000,0800,1600 [facility] Last Admin: 06/13/18 09:12 Dose: 400 mg Metformin HCl (Glucophage -) 1,000 mg PO ACBK [facility] Last Admin: 06/13/18 06:32 Dose: 1,000 mg Non-Formulary Medication (Canagliflozin [Invokana]) 100 mg PO DAILY [facility] Pantoprazole Sodium (Protonix -) 40 mg PO DAILY [facility] Last Admin: 06/13/18 09:13 Dose: 40 mg Sitagliptin Phosphate (Januvia -) 50 mg PO DAILY@0700 [facility] Last Admin: 06/13/18 06:32 Dose: 50 mg - Objective Vital Signs: Vital Signs Temperature 98.1 F 06/13/18 12:48 Pulse Rate 89 06/13/18 12:48 Respiratory Rate 19 06/13/18 12:48 Blood Pressure 130/69 06/13/18 12:48 O2 Sat by Pulse Oximetry (%) 96 06/13/18 09:00 Constitutional: Yes: Well Nourished, Calm Eyes: Yes: WNL HENT: Yes: WNL Neck: Yes: WNL Cardiovascular: Yes: Regular Rate and Rhythm, S1, S2 Respiratory: Yes: CTA Bilaterally Gastrointestinal: Yes: Normal Bowel Sounds, Soft Extremities: Yes: WNL Edema: No Labs: CBC, BMP Assessment/Plan Problem List - Problems (1) Pleuritic chest pain Code(s): R07.81 - PLEURODYNIA (2) Pericarditis Code(s): I31.9 - DISEASE OF PERICARDIUM, UNSPECIFIED (3) Atelectasis Code(s): J98.11 - ATELECTASIS (4) Diabetes mellitus Code(s): E11.9 - TYPE 2 DIABETES MELLITUS WITHOUT COMPLICATIONS Qualifiers: Diabetes mellitus type: type 2 Diabetes mellitus complication status: without complication Assessment/Plan Pleuritic Chest Pain improved Pericarditis Atelectasis DM - incentive spirometry - CXR findings likely due to atelectasis from splinting due to his chest pain - continue anti-inflammatory agents - DVT prophylaxis - f/u chest x-ray DR JENNINGS
[2018-06-13 14:30] VITALS: BP 128/79; PULSE 88; TEMP 97.9
[2018-06-13] MEDS ORDERED: PT OWN MED DRAWER 7, Y5N ONE (18:49)
== END 2018-06-13 18:30 | disposition home or self-care (01) | DRG 315 ==
LOC: JER 16:28 → JERBED 19:45 → OBSVTOIN 22:11 → J4S 23:18
PROVIDERS: ADMIT Internal Medicine; ATTEND Internal Medicine
DX: I31.9 Disease of pericardium, unspecified (principal); J98.11 Atelectasis; F17.210 Nicotine dependence, cigarettes, uncomplicated; E11.9 Type 2 diabetes mellitus without complications; E66.9 Obesity, unspecified; Z68.35 Body mass index [BMI] 35.0-35.9, adult; Z79.84 Long term (current) use of oral hypoglycemic drugs
CPT/HCPCS: 36415; 71046-TC-FY; 80048; 80053; 82550; 82962; 84484; 85025; 85651; 86038; 86140; 87040; 87389; 93005; 93010; 93306-TC; 94010; 99285-25; G0378; J1644

== ENCOUNTER 2022-10-22 01:10 | Inpatient (IN) | payer BC ==
[2022-10-22 01:25] VITALS: BMI 36.5
[2022-10-22] MEDS ORDERED: SODIUM CHLORIDE 0.9% 500 ML INFUS.BAG IV ONE (02:54)
[2022-10-22] MEDS ORDERED: KETOROLAC TROMETHAMINE 15 MG/ML VIAL IVPUSH ONE (03:53)
[2022-10-22] MEDS ORDERED: morphine CARPU-JECT 4 MG/1 ML DISP.SYRIN IVPUSH ONE (04:00)
[2022-10-22] MEDS ORDERED: morphine SULFATE 4 MG/ML VIAL ONE (04:01)
[2022-10-22 04:07] LABS: BASO % 0.4 % (0-2.0); EOS % 0.6 % (0-4.5); HEMATOCRIT 41.2 % (35.4-49); HEMOGLOBIN 14.1 GM/dL (11.7-16.9); LYMPH % 7.5 % (8-40); MCH 31.6 pg (25.7-33.7); MCHC 34.2 g/dl (32.0-35.9); MEAN CELL VOLUME 92.6 fl (80-96); MEAN PLT VOLUME 6.8 fl (7.5-11.1); MONO % 10.5 % (3.8-10.2); PLATELET COUNT 335 10^3/uL (134-434); RBC 4.45 M/mm3 (4.00-5.60); RDW 13.9 % (11.9-15.9); WHITE BLOOD COUNT 14.6 K/mm3 (4.0-10.0)
[2022-10-22] MEDS ORDERED: PIPERACILLIN/TAZOB 4.5 GM 4.5 GM in DEXTROSE 5%-WATER 100 ML IVPB SCH ×2 (04:11→10:00)
[2022-10-22] MEDS ORDERED: PIPERACILLIN/TAZOB 4.5 GM 4.5 GM in DEXTROSE 5%-WATER 100 ML IVPB ONE (04:14)
[2022-10-22] MEDS ORDERED: VANCOMYCIN/WATER 2 GM/400 ML PREMIX BAG (RESTRICTED TO ID ONLY) IVPB ONE (04:15)
[2022-10-22] MEDS ORDERED: PIPERACILLIN/TAZOB 4.5 GM 4.5 GM/100 ML BAG IVPB ONE (04:16)
[2022-10-22 04:18] LABS: INR 1.26 (0.83-1.09); PROTHROMBIN TIME (PATIENT) 14.6 SEC (9.7-13.0)
[2022-10-22 04:19] LABS: VENOUS BASE EXCESS -4.6 mmol/L (-2-2); VENOUS PCO2 37.1 mmHg (38-52); VENOUS PH 7.356 (7.310-7.410)
[2022-10-22 04:21] LABS: ACTIVATED PTT 29.2 SECONDS (25.2-36.5)
[2022-10-22 04:26] LABS: POTASSIUM 3.9 mmol/L (3.5-5.1)
[2022-10-22 04:29] LABS: BLOOD UREA NITROGEN 16.1 mg/dL (7-18)
[2022-10-22 04:32] LABS: CREATININE 0.9 mg/dL (0.55-1.3)
[2022-10-22 04:33] LABS: TOT PROT 6.7 g/dl (6.4-8.2)
[2022-10-22 04:34] LABS: BILIRUBIN,TOTAL 0.7 mg/dL (0.2-1)
[2022-10-22] MEDS ORDERED: ASPIRIN 81 MG CHEWABLE TABLETS PO SCH (10:30)
[2022-10-22 12:06] LABS: EPI CELLS 2 /uL (0-25.1); HYALINE CASTS 0 /uL (0-3.1); URINE APPEARANCE CLEAR; URINE BACTERIA 1 /uL (0-1359); URINE BILIRUBIN NEGATIVE (NEGATIVE); URINE COLOR YELLOW; URINE GLUCOSE (UA) 3+ (NEGATIVE); URINE KETONE 1+ (NEGATIVE); URINE LEUK ESTERASE NEGATIVE (NEGATIVE); URINE NITRITE NEGATIVE (NEGATIVE); URINE PROTEIN 1+ (NEGATIVE); URINE RBC 12 /uL (0-23.9); URINE UROBILINOGEN 0.2 mg/dL (0.2-1.0); URINE WBC 3 /uL (0-25.8)
[2022-10-22] MEDS: INSULIN SLIDING SCALE (NOVOLOG) 1 VIAL SQ SCH ×3 (12:08→23:24)
[2022-10-22] MEDS ORDERED: LOSARTAN POTASSIUM 25 MG TABLET ONE (12:55)
[2022-10-22] MEDS ORDERED: ASPIRIN 81 MG CHEWABLE TABLETS ONE (12:56)
[2022-10-22] MEDS ORDERED: metoPROLOL SUCCINATE 25 MG TAB.SR.24H (FP) PO ONE (12:56)
[2022-10-22] MEDS: LOSARTAN POTASSIUM 25 MG TABLET PO SCH (12:58)
[2022-10-22] MEDS: metoPROLOL SUCCINATE 25 MG TAB.SR.24H (FP) PO SCH (12:59)
[2022-10-22] MEDS: ROSUVASTATIN CA 10 MG TABLET PO SCH (12:59)
[2022-10-22] MEDS: VANCOMYCIN/WATER 1250 MG 1,250 MG/250 ML BAG IVPB SCH (16:30)
[2022-10-22] MEDS ORDERED: metFORMIN HCL 500 MG TABLET (FP) ONE (18:04)
[2022-10-22] MEDS ORDERED: PIPERACILLIN/TAZOB 3.375 GM 3.375 GM/50 ML BAG IVPB ONE (18:05)
[2022-10-22] MEDS: PIPERACILLIN/TAZOB 3.375 GM 3.375 GM in DEXTROSE 5%-WATER - 50 ML IVPB SCH (18:07)
[2022-10-22] MEDS: metFORMIN HCL 500 MG TABLET (FP) PO SCH (18:07)
[2022-10-23] MEDS: PIPERACILLIN/TAZOB 3.375 GM 3.375 GM in DEXTROSE 5%-WATER - 50 ML IVPB SCH ×3 (02:50→17:50)
[2022-10-23] MEDS: VANCOMYCIN/WATER 1250 MG 1,250 MG/250 ML BAG IVPB SCH ×2 (03:54→17:40)
[2022-10-23] MEDS: metFORMIN HCL 500 MG TABLET (FP) PO SCH ×2 (06:43→16:22)
[2022-10-23] MEDS: INSULIN SLIDING SCALE (NOVOLOG) 1 VIAL SQ SCH ×4 (06:44→22:43)
[2022-10-23 09:12] LABS: BASO % 0.7 % (0-2.0); EOS % 2.3 % (0-4.5); HEMATOCRIT 38.6 % (35.4-49); HEMOGLOBIN 13.1 GM/dL (11.7-16.9); LYMPH % 9.3 % (8-40); MCH 31.4 pg (25.7-33.7); MEAN CELL VOLUME 92.2 fl (80-96); MEAN PLT VOLUME 6.6 fl (7.5-11.1); MONO % 10.7 % (3.8-10.2); PLATELET COUNT 353 10^3/uL (134-434); RBC 4.18 M/mm3 (4.00-5.60); RDW 13.8 % (11.9-15.9)
[2022-10-23 09:31] LABS: POTASSIUM 3.9 mmol/L (3.5-5.1)
[2022-10-23 09:33] LABS: CALCIUM 8.4 mg/dL (8.5-10.1)
[2022-10-23 09:34] LABS: BLOOD UREA NITROGEN 12.7 mg/dL (7-18)
[2022-10-23 09:37] LABS: ALBUMIN 2.6 g/dl (3.4-5.0); CREATININE 0.7 mg/dL (0.55-1.3)
[2022-10-23 09:38] LABS: TOT PROT 6.1 g/dl (6.4-8.2)
[2022-10-23 09:39] LABS: BILIRUBIN,TOTAL 0.5 mg/dL (0.2-1)
[2022-10-23] MEDS ORDERED: ENOXAPARIN NA (PORCINE) 40 MG/0.4 ML DISP.SYRIN SQ SCH (10:00)
[2022-10-23] MEDS: ROSUVASTATIN CA 10 MG TABLET PO SCH ×2 (11:15→11:23)
[2022-10-23] MEDS: metoPROLOL SUCCINATE 25 MG TAB.SR.24H (FP) PO SCH ×2 (11:15→11:23)
[2022-10-23] MEDS: LOSARTAN POTASSIUM 25 MG TABLET PO SCH (11:22)
[2022-10-23] MEDS: SODIUM CHLORIDE 0.45% 1,000 ML IV SCH (16:32)
[2022-10-23] MEDS: ACETAMINOPHEN 1000 MG/100 ML BAG IVPB PRN ×2 (16:33→22:35)
[2022-10-24] MEDS: PIPERACILLIN/TAZOB 3.375 GM 3.375 GM in DEXTROSE 5%-WATER - 50 ML IVPB SCH ×3 (01:54→17:19)
[2022-10-24] MEDS: VANCOMYCIN/WATER 1250 MG 1,250 MG/250 ML BAG IVPB SCH ×2 (04:42→15:28)
[2022-10-24] MEDS: SODIUM CHLORIDE 0.45% 1,000 ML IV SCH ×2 (06:21→10:48)
[2022-10-24] MEDS: ACETAMINOPHEN 1000 MG/100 ML BAG IVPB PRN (06:23)
[2022-10-24] MEDS: metFORMIN HCL 500 MG TABLET (FP) PO SCH ×2 (06:31→16:31)
[2022-10-24] MEDS: INSULIN SLIDING SCALE (NOVOLOG) 1 VIAL SQ SCH ×4 (06:31→22:19)
[2022-10-24] MEDS ORDERED: MIDAZOLAM HCL 2 MG/2 ML SINGLE DOSE VIAL ONE (08:11)
[2022-10-24] MEDS ORDERED: LIDOCAINE HCL/PF 2% SDV 5ML VIAL ONE (08:41)
[2022-10-24] MEDS ORDERED: ONDANSETRON 4 MG/2 ML VIAL ONE (08:41)
[2022-10-24] MEDS ORDERED: PROPOFOL 20 ML ONE ×2 (08:43→08:55)
[2022-10-24 09:18] LABS: BASO % 0.6 % (0-2.0); EOS % 1.9 % (0-4.5); HEMATOCRIT 39.2 % (35.4-49); HEMOGLOBIN 13.1 GM/dL (11.7-16.9); MCH 30.8 pg (25.7-33.7); MCHC 33.4 g/dl (32.0-35.9); MEAN CELL VOLUME 92.4 fl (80-96); MEAN PLT VOLUME 6.8 fl (7.5-11.1); MONO % 10.3 % (3.8-10.2); NEUT % 78.2 % (42.8-82.8); PLATELET COUNT 380 10^3/uL (134-434); RBC 4.24 M/mm3 (4.00-5.60); RDW 14.1 % (11.9-15.9)
[2022-10-24] MEDS ORDERED: oxyCODONE HCL 5 MG TABLET PO PRN (09:26)
[2022-10-24] MEDS ORDERED: LACTATED RINGERS SOLUTION 1,000 ML IV SCH (09:30)
[2022-10-24 09:38] LABS: POTASSIUM 4.1 mmol/L (3.5-5.1)
[2022-10-24] MEDS ORDERED: ACETAMINOPHEN 1000 MG/100 ML BAG IVPB PRN (09:40)
[2022-10-24 09:43] LABS: ALBUMIN 2.6 g/dl (3.4-5.0)
[2022-10-24 09:44] LABS: BLOOD UREA NITROGEN 9.5 mg/dL (7-18); CALCIUM 8.4 mg/dL (8.5-10.1)
[2022-10-24 09:45] LABS: CREATININE 0.6 mg/dL (0.55-1.3)
[2022-10-24 09:47] LABS: TOT PROT 6.1 g/dl (6.4-8.2)
[2022-10-24 09:48] LABS: BILIRUBIN,TOTAL 0.5 mg/dL (0.2-1)
[2022-10-24] MEDS: metoPROLOL SUCCINATE 25 MG TAB.SR.24H (FP) PO SCH (10:44)
[2022-10-24] MEDS: ROSUVASTATIN CA 10 MG TABLET PO SCH (10:44)
[2022-10-24] MEDS: LOSARTAN POTASSIUM 25 MG TABLET PO SCH (10:45)
[2022-10-24] MEDS: oxyCODONE HCL 5 MG TABLET PO PRN (22:20)
[2022-10-25] MEDS: PIPERACILLIN/TAZOB 3.375 GM 3.375 GM in DEXTROSE 5%-WATER - 50 ML IVPB SCH ×3 (02:43→18:03)
[2022-10-25] MEDS: VANCOMYCIN/WATER 1250 MG 1,250 MG/250 ML BAG IVPB SCH (04:09)
[2022-10-25] MEDS: oxyCODONE HCL 5 MG TABLET PO PRN (04:10)
[2022-10-25] MEDS: metFORMIN HCL 500 MG TABLET (FP) PO SCH ×2 (06:08→16:42)
[2022-10-25] MEDS: INSULIN SLIDING SCALE (NOVOLOG) 1 VIAL SQ SCH ×4 (06:14→22:17)
[2022-10-25 08:42] LABS: BASO % 0.9 % (0-2.0); EOS % 2.7 % (0-4.5); HEMOGLOBIN 12.9 GM/dL (11.7-16.9); LYMPH % 16.7 % (8-40); MCH 31.3 pg (25.7-33.7); MCHC 33.9 g/dl (32.0-35.9); MEAN CELL VOLUME 92.4 fl (80-96); MEAN PLT VOLUME 6.2 fl (7.5-11.1); MONO % 12.3 % (3.8-10.2); NEUT % 67.4 % (42.8-82.8); PLATELET COUNT 384 10^3/uL (134-434); RBC 4.11 M/mm3 (4.00-5.60); RDW 13.7 % (11.9-15.9)
[2022-10-25 09:19] LABS: CALCIUM 8.2 mg/dL (8.5-10.1)
[2022-10-25 09:20] LABS: ALBUMIN 2.4 g/dl (3.4-5.0); BLOOD UREA NITROGEN 6.9 mg/dL (7-18)
[2022-10-25 09:23] LABS: CREATININE 0.7 mg/dL (0.55-1.3)
[2022-10-25 09:24] LABS: BILIRUBIN,TOTAL 0.4 mg/dL (0.2-1)
[2022-10-25 09:25] LABS: TOT PROT 5.8 g/dl (6.4-8.2)
[2022-10-25] MEDS: ROSUVASTATIN CA 10 MG TABLET PO SCH (10:06)
[2022-10-25] MEDS: metoPROLOL SUCCINATE 25 MG TAB.SR.24H (FP) PO SCH (10:06)
[2022-10-25] MEDS: LOSARTAN POTASSIUM 25 MG TABLET PO SCH (10:07)
[2022-10-25] MEDS: SODIUM CHLORIDE 0.45% 1,000 ML IV SCH ×2 (12:02→22:17)
[2022-10-26] MEDS: PIPERACILLIN/TAZOB 3.375 GM 3.375 GM in DEXTROSE 5%-WATER - 50 ML IVPB SCH ×3 (02:15→17:19)
[2022-10-26] MEDS: metFORMIN HCL 500 MG TABLET (FP) PO SCH ×2 (06:36→17:17)
[2022-10-26] MEDS: INSULIN SLIDING SCALE (NOVOLOG) 1 VIAL SQ SCH ×4 (06:36→22:45)
[2022-10-26] MEDS: SODIUM CHLORIDE 0.45% 1,000 ML IV SCH ×2 (09:59→17:19)
[2022-10-26] MEDS: metoPROLOL SUCCINATE 25 MG TAB.SR.24H (FP) PO SCH (10:00)
[2022-10-26] MEDS: ROSUVASTATIN CA 10 MG TABLET PO SCH (10:00)
[2022-10-26] MEDS: LOSARTAN POTASSIUM 25 MG TABLET PO SCH (10:00)
[2022-10-27] MEDS: PIPERACILLIN/TAZOB 3.375 GM 3.375 GM in DEXTROSE 5%-WATER - 50 ML IVPB SCH ×3 (02:23→17:09)
[2022-10-27] MEDS: SODIUM CHLORIDE 0.45% 1,000 ML IV SCH ×2 (06:22→10:00)
[2022-10-27] MEDS: metFORMIN HCL 500 MG TABLET (FP) PO SCH ×2 (06:22→17:09)
[2022-10-27] MEDS: INSULIN SLIDING SCALE (NOVOLOG) 1 VIAL SQ SCH ×4 (06:23→22:48)
[2022-10-27] MEDS: LOSARTAN POTASSIUM 25 MG TABLET PO SCH (09:59)
[2022-10-27] MEDS: metoPROLOL SUCCINATE 25 MG TAB.SR.24H (FP) PO SCH (09:59)
[2022-10-27] MEDS: ROSUVASTATIN CA 10 MG TABLET PO SCH (09:59)
[2022-10-28] MEDS: PIPERACILLIN/TAZOB 3.375 GM 3.375 GM in DEXTROSE 5%-WATER - 50 ML IVPB SCH ×2 (01:52→10:00)
[2022-10-28] MEDS: INSULIN SLIDING SCALE (NOVOLOG) 1 VIAL SQ SCH ×3 (06:16→16:09)
[2022-10-28] MEDS: metFORMIN HCL 500 MG TABLET (FP) PO SCH ×2 (06:17→16:08)
[2022-10-28 07:15] VITALS: RESP 18
[2022-10-28 09:46] VITALS: BP 122/61; PULSE 82; TEMP 99
[2022-10-28] MEDS: ROSUVASTATIN CA 10 MG TABLET PO SCH (10:03)
[2022-10-28] MEDS: LOSARTAN POTASSIUM 25 MG TABLET PO SCH (10:03)
[2022-10-28] MEDS: metoPROLOL SUCCINATE 25 MG TAB.SR.24H (FP) PO SCH (10:03)
[2022-10-28] MEDS: SODIUM CHLORIDE 0.45% 1,000 ML IV SCH (10:03)
== END 2022-10-28 16:14 | disposition home health service (06) | DRG 581 ==
LOC: JER 01:10 → JERBED 05:36 → J7W 21:19
PROVIDERS: ADMIT Internal Medicine; ATTEND Internal Medicine
PROC: 0Y960ZZ Drainage of Left Inguinal Region, Open Approach (ICD-10-PCS; principal; 2022-10-24 08:00)
DX: L02.214 Cutaneous abscess of groin (principal); L03.314 Cellulitis of groin; I10 Essential (primary) hypertension; E11.9 Type 2 diabetes mellitus without complications; E78.5 Hyperlipidemia, unspecified; E66.01 Morbid (severe) obesity due to excess calories; Z68.36 Body mass index [BMI] 36.0-36.9, adult; F17.210 Nicotine dependence, cigarettes, uncomplicated; Z79.84 Long term (current) use of oral hypoglycemic drugs
CPT/HCPCS: 36415; 71045-TC-FY; 74177-TC; 80053; 81003; 82803; 82962; 83605; 84484; 85025; 85610; 85730; 86850; 86900; 86901; 87040; 87070; 87076; 87086; 87205; 93005; 93010; 94760; 99285-25; C9803-CS; G0480; Q9967; U0003; U0005

== ENCOUNTER 2023-05-07 05:03 | Emergency (ER) | payer BC ==
[2023-05-07 05:42] VITALS: BP 108/65; PULSE 89; RESP 18; TEMP 98; BMI 34.0
[2023-05-07] MEDS ORDERED: ACETAMINOPHEN 1000 MG/100 ML BAG IVPB ONE (06:00)
[2023-05-07] MEDS ORDERED: ACETAMINOPHEN INJECTION 100 ML IVPB ONE (06:14)
[2023-05-07 06:24] LABS: BASO % 0.7 % (0-2.0); EOS % 1.3 % (0-4.5); HEMATOCRIT 48.6 % (35.4-49); HEMOGLOBIN 15.9 GM/dL (11.7-16.9); LYMPH % 7.5 % (8-40); MCH 30.5 pg (25.7-33.7); MCHC 32.8 g/dl (32.0-35.9); MEAN CELL VOLUME 92.9 fl (80-96); MEAN PLT VOLUME 7.3 fl (7.5-11.1); MONO % 7.3 % (3.8-10.2); NEUT % 83.2 % (42.8-82.8); PLATELET COUNT 308 10^3/uL (134-434); RBC 5.23 M/mm3 (4.00-5.60)
[2023-05-07 06:41] LABS: INR 0.95 (0.83-1.09)
[2023-05-07 06:43] LABS: ACTIVATED PTT 32.1 SECONDS (25.2-36.5)
[2023-05-07 07:00] LABS: POTASSIUM 4.5 mmol/L (3.5-5.1)
[2023-05-07 07:02] LABS: CALCIUM 9.1 mg/dL (8.5-10.1)
[2023-05-07 07:03] LABS: ALBUMIN 3.8 g/dl (3.4-5.0); BLOOD UREA NITROGEN 17.1 mg/dL (7-18)
[2023-05-07 07:06] LABS: CREATININE 0.9 mg/dL (0.55-1.3)
[2023-05-07 07:08] LABS: BILIRUBIN,TOTAL 0.3 mg/dL (0.2-1)
[2023-05-07] MEDS ORDERED: KETOROLAC TROMETHAMINE 15 MG/ML VIAL IVPUSH ONE (08:48)
[2023-05-07] MEDS ORDERED: KETOROLAC TROMETHAMINE 15 MG/ML VIAL ONE (08:58)
== END 2023-05-07 11:36 | disposition left against medical advice (07) ==
LOC: JER 05:03
PROC: 3E033NZ Introduction of Analgesics, Hypnotics, Sedatives into Peripheral Vein, Percutaneous Approach (ICD-10-PCS; principal; 2023-05-07)
PROC: 3E0333Z Introduction of Anti-inflammatory into Peripheral Vein, Percutaneous Approach (ICD-10-PCS; 2023-05-07)
DX: R07.81 Pleurodynia (principal); R05.3 Chronic cough; I26.99 Other pulmonary embolism without acute cor pulmonale; E11.9 Type 2 diabetes mellitus without complications; I10 Essential (primary) hypertension; E78.5 Hyperlipidemia, unspecified
CPT/HCPCS: 36415; 71046-TC-FY; 71275-TC; 80053; 82550; 84484; 85025; 85610; 85730; 86850; 86900; 86901; 93005; 93010; 99285-25; Q9967

== ENCOUNTER 2023-05-08 00:19 | Inpatient (IN) | payer BC ==
[2023-05-08 02:07] LABS: BASO % 0.5 % (0-2.0); EOS % 2.4 % (0-4.5); HEMATOCRIT 45.8 % (35.4-49); HEMOGLOBIN 15.5 GM/dL (11.7-16.9); LYMPH % 12.7 % (8-40); MCH 31.2 pg (25.7-33.7); MCHC 33.8 g/dl (32.0-35.9); MEAN CELL VOLUME 92.3 fl (80-96); MEAN PLT VOLUME 7.2 fl (7.5-11.1); MONO % 11.8 % (3.8-10.2); NEUT % 72.6 % (42.8-82.8); PLATELET COUNT 298 10^3/uL (134-434); RBC 4.96 M/mm3 (4.00-5.60); RDW 14.9 % (11.9-15.9); WHITE BLOOD COUNT 10.5 K/mm3 (4.0-10.0)
[2023-05-08] MEDS ORDERED: MAGNESIUM SULF 50% (8.12 MEQ/2 ML-1 GM VIAL) IVPB ONE (02:22)
[2023-05-08 02:23] LABS: INR 1.1 (0.83-1.09); PROTHROMBIN TIME (PATIENT) 12.7 SEC (9.7-13.0)
[2023-05-08 02:25] LABS: ACTIVATED PTT 37.6 SECONDS (25.2-36.5)
[2023-05-08] MEDS ORDERED: morphine CARPU-JECT 2 MG/1 ML DISP.SYRIN IVPUSH ONE (02:27)
[2023-05-08] MEDS ORDERED: morphine SULFATE 4 MG/ML VIAL ONE (02:31)
[2023-05-08] MEDS ORDERED: PANTOPRAZOLE 40 MG TABLET PO ONE (03:50)
[2023-05-08] MEDS ORDERED: ACETAMINOPHEN 325 MG TABLET (FP) PO PRN (03:51)
[2023-05-08] MEDS ORDERED: HYDROmorphone HCl 2 MG/ML VIAL IVPUSH ONE (03:52)
[2023-05-08] MEDS ORDERED: HYDROmorphone HCl 2 MG/ML VIAL ONE (03:58)
[2023-05-08 04:15] LABS: POTASSIUM 4.9 mmol/L (3.5-5.1)
[2023-05-08 04:22] LABS: BLOOD UREA NITROGEN 19.6 mg/dL (7-18); CALCIUM 8.9 mg/dL (8.5-10.1)
[2023-05-08 04:23] LABS: ALBUMIN 3.6 g/dl (3.4-5.0)
[2023-05-08 04:26] LABS: CREATININE 1.1 mg/dL (0.55-1.3)
[2023-05-08 04:27] LABS: BILIRUBIN,TOTAL 0.5 mg/dL (0.2-1); TOT PROT 6.7 g/dl (6.4-8.2)
[2023-05-08 04:30] LABS: N-TERMINAL BNP 57.7 pg/ml (5-125)
[2023-05-08] MEDS ORDERED: ENOXAPARIN NA (PORCINE) 100 MG/1 ML DISP.SYRIN SQ ONE (05:03)
[2023-05-08] MEDS: ENOXAPARIN NA (PORCINE) 100 MG/1 ML DISP.SYRIN SQ SCH ×2 (05:06→16:41)
[2023-05-08] MEDS: INSULIN SLIDING SCALE (NOVOLOG) 1 VIAL SQ SCH ×4 (07:10→21:34)
[2023-05-08] MEDS ORDERED: metFORMIN HCL 500 MG TABLET (FP) ONE (07:12)
[2023-05-08] MEDS: metFORMIN HCL 500 MG TABLET (FP) PO SCH ×2 (07:12→16:40)
[2023-05-08 09:03] LABS: BASO % 0.6 % (0-2.0); EOS % 3.4 % (0-4.5); HEMATOCRIT 45.9 % (35.4-49); HEMOGLOBIN 15.6 GM/dL (11.7-16.9); LYMPH % 21.7 % (8-40); MCH 31.4 pg (25.7-33.7); MEAN CELL VOLUME 92.6 fl (80-96); MEAN PLT VOLUME 7.3 fl (7.5-11.1); MONO % 13.1 % (3.8-10.2); NEUT % 61.2 % (42.8-82.8); PLATELET COUNT 293 10^3/uL (134-434); RBC 4.96 M/mm3 (4.00-5.60); RDW 14.8 % (11.9-15.9); WHITE BLOOD COUNT 7.8 K/mm3 (4.0-10.0)
[2023-05-08] MEDS ORDERED: metoPROLOL SUCCINATE 25 MG TAB.SR.24H (FP) PO ONE (09:37)
[2023-05-08] MEDS ORDERED: ASPIRIN 81 MG CHEWABLE TABLETS ONE (09:37)
[2023-05-08] MEDS ORDERED: LOSARTAN POTASSIUM 25 MG TABLET ONE (09:37)
[2023-05-08] MEDS: LOSARTAN POTASSIUM 25 MG TABLET PO SCH (09:43)
[2023-05-08] MEDS: ASPIRIN 81 MG CHEWABLE TABLETS PO SCH (09:43)
[2023-05-08] MEDS: metoPROLOL SUCCINATE 25 MG TAB.SR.24H (FP) PO SCH (09:43)
[2023-05-08] MEDS ORDERED: ENOXAPARIN NA (PORCINE) 100 MG/1 ML DISP.SYRIN SQ SCH (10:00)
[2023-05-08 10:03] LABS: POTASSIUM 4.6 mmol/L (3.5-5.1)
[2023-05-08 10:15] LABS: ALBUMIN 3.7 g/dl (3.4-5.0); BLOOD UREA NITROGEN 16.6 mg/dL (7-18); CALCIUM 8.8 mg/dL (8.5-10.1)
[2023-05-08 10:19] LABS: BILIRUBIN,TOTAL 0.8 mg/dL (0.2-1); TOT PROT 6.9 g/dl (6.4-8.2)
[2023-05-08] MEDS: FENOFIBRIC ACID 135 MG CAP PO SCH (10:31)
[2023-05-08 16:12] VITALS: BMI 34.8
[2023-05-08] MEDS: ROSUVASTATIN CA 10 MG TABLET PO SCH (21:34)
[2023-05-09] MEDS: metFORMIN HCL 500 MG TABLET (FP) PO SCH ×2 (06:48→16:22)
[2023-05-09] MEDS: ENOXAPARIN NA (PORCINE) 100 MG/1 ML DISP.SYRIN SQ SCH ×2 (06:48→16:22)
[2023-05-09] MEDS: INSULIN SLIDING SCALE (NOVOLOG) 1 VIAL SQ SCH ×4 (06:49→22:14)
[2023-05-09] MEDS: ASPIRIN 81 MG CHEWABLE TABLETS PO SCH (10:53)
[2023-05-09] MEDS: LOSARTAN POTASSIUM 25 MG TABLET PO SCH (10:53)
[2023-05-09] MEDS: metoPROLOL SUCCINATE 25 MG TAB.SR.24H (FP) PO SCH (10:54)
[2023-05-09] MEDS: FENOFIBRIC ACID 135 MG CAP PO SCH (10:57)
[2023-05-09] MEDS ORDERED: INSULIN (NOVOLOG) ASPART 100 UNITS/ML 10ML VIAL ONE (21:53)
[2023-05-09] MEDS: ROSUVASTATIN CA 10 MG TABLET PO SCH (22:15)
[2023-05-10] MEDS: ENOXAPARIN NA (PORCINE) 100 MG/1 ML DISP.SYRIN SQ SCH ×2 (06:46→16:40)
[2023-05-10] MEDS: metFORMIN HCL 500 MG TABLET (FP) PO SCH ×2 (06:46→16:39)
[2023-05-10] MEDS: INSULIN SLIDING SCALE (NOVOLOG) 1 VIAL SQ SCH ×4 (06:47→21:26)
[2023-05-10] MEDS: FENOFIBRIC ACID 135 MG CAP PO SCH (09:12)
[2023-05-10] MEDS: metoPROLOL SUCCINATE 25 MG TAB.SR.24H (FP) PO SCH (09:12)
[2023-05-10] MEDS: LOSARTAN POTASSIUM 25 MG TABLET PO SCH (09:12)
[2023-05-10] MEDS: ASPIRIN 81 MG CHEWABLE TABLETS PO SCH (09:12)
[2023-05-10] MEDS: ROSUVASTATIN CA 10 MG TABLET PO SCH (21:26)
[2023-05-11] MEDS: ENOXAPARIN NA (PORCINE) 100 MG/1 ML DISP.SYRIN SQ SCH (05:06)
[2023-05-11 05:37] VITALS: RESP 16
[2023-05-11] MEDS: metFORMIN HCL 500 MG TABLET (FP) PO SCH (06:13)
[2023-05-11] MEDS: INSULIN SLIDING SCALE (NOVOLOG) 1 VIAL SQ SCH (06:13)
[2023-05-11 10:07] VITALS: BP 141/76; PULSE 80; TEMP 98.2
[2023-05-11] MEDS: ASPIRIN 81 MG CHEWABLE TABLETS PO SCH (10:27)
[2023-05-11] MEDS: LOSARTAN POTASSIUM 25 MG TABLET PO SCH (10:27)
[2023-05-11] MEDS: metoPROLOL SUCCINATE 25 MG TAB.SR.24H (FP) PO SCH (10:27)
[2023-05-11] MEDS: FENOFIBRIC ACID 135 MG CAP PO SCH (10:48)
== END 2023-05-11 12:04 | disposition home or self-care (01) | DRG 176 ==
LOC: JER 00:19 → JERBED 04:46 → J4W 14:54
PROVIDERS: ADMIT Internal Medicine; ATTEND Internal Medicine
DX: I26.99 Other pulmonary embolism without acute cor pulmonale (principal); I10 Essential (primary) hypertension; E78.5 Hyperlipidemia, unspecified; E11.9 Type 2 diabetes mellitus without complications; Z79.84 Long term (current) use of oral hypoglycemic drugs
CPT/HCPCS: 36415; 80053; 82550; 82962; 83880; 84484; 85025; 85610; 85730; 86850; 86900; 86901; 93005; 93010; 93306-TC; 93970-TC; 99285-25